=== PATIENT | female | born 1960 | race Caucasian/White ===

== ENCOUNTER → 2017-09-15 | Outpatient (CLI) | payer BC ==
[~2017-09-15] MED LIST: AC325T PO; LIDOCAINE 1% INJ 20 ML (XYLOCAINE) VIAL INJ ONE; LVT.1T PO
[2017-09-15 10:15] VITALS: BP 130/78
[2017-09-15 11:35] VITALS: BP 121/76
--- NOTE | 2017-09-15 14:42 | Diagnostic Imaging Report ---
EXAMINATION: Vacuum-assisted ultrasound-guided biopsy of breast mass right. A metallic clip placed to tony biopsy site. INDICATION: Right breast mass. CONSENT: Informed consent was obtained from the patient. The risks, benefits, potential complications and alternatives were reviewed and all questions answered to the patient's satisfaction. FINDINGS: Ultrasound images demonstrate 10:00 right breast mass. PROCEDURE: After sterile preparation and draping, 1% lidocaine was utilized for local anesthesia. A vacuum-assisted biopsy device with 14-gauge needle was introduced under live ultrasound guidance into the lesion. Good needle position was documented with ultrasound images. A metallic clip was placed to tony the site of the biopsy. A subsequent mammogram is performed and confirms the proper positioning of the clip. Multiple samples were obtained and sent to pathology. The patient tolerated the procedure well with no immediate complications. IMPRESSION: Successful ultrasound-guided biopsy of 10:00 right breast mass. A metallic clip placed to tony biopsy site. Dictated by: Dictated on workstation # [id number]
--- NOTE | 2017-09-15 14:44 | Diagnostic Imaging Report ---
EXAMINATION: Right breast ultrasound. INDICATION: Mass seen in the upper outer quadrant based on outside reports. Outside images are requested but are not available at this point. FINDINGS: There is an irregular hypoechoic mass measuring 1.1 x 0.6 x 0.6 CM at 10:00 zone 4 cm from the nipple. There is no internal vascularity demonstrated. The four-quadrant and retroareolar region of the right breast demonstrate no other lesion. IMPRESSION: Suspicious 1.1 cm hypoechoic mass at the 10:00 zone 4 cm from the nipple. Ultrasound-guided biopsy will follow. BI-RADS 4C. ACR BI-RADS Category 4C: Moderate suspicion of malignancy. Dictated by: Dictated on workstation # [id number]
--- NOTE | 2017-09-15 22:30 | Diagnostic Imaging Report ---
EXAMINATION: CC and lateral view of the right breast. INDICATION: Documentation of clip position after ultrasound-guided biopsy. FINDINGS: There is a clip in the posterior lateral upper aspect of the right breast with no definite underlying lesion seen. This could relate to the nodule postbiopsy changes after the ultrasound-guided biopsy. IMPRESSION: Satisfactory clip position after ultrasound-guided biopsy of a nodule in the upper-outer aspect of the right breast. Pathology results are pending. Dictated by: Dictated on workstation # [id number]
== END ==
LOC: RAD 09:47
PROVIDERS: ATTEND Internal Medicine Hematology & Oncology
DX: N63.10 Unspecified lump in the right breast, unspecified quadrant (principal)
CPT/HCPCS: 19083; 76641

== ENCOUNTER → 2017-09-15 | Outpatient (CLI) | payer BC ==
[~2017-09-15] MED LIST changes: -LIDOCAINE 1% INJ 20 ML (XYLOCAINE) VIAL INJ ONE
== END ==
LOC: ONC 08:53
PROVIDERS: ATTEND Internal Medicine Hematology & Oncology
DX: Z08 Encounter for follow-up examination after completed treatment for malignant neoplasm (principal); Z85.3 Personal history of malignant neoplasm of breast; N63.11 Unspecified lump in the right breast, upper outer quadrant; I89.0 Lymphedema, not elsewhere classified; D64.9 Anemia, unspecified; E03.9 Hypothyroidism, unspecified; Z90.12 Acquired absence of left breast and nipple; Z90.710 Acquired absence of both cervix and uterus; Z92.21 Personal history of antineoplastic chemotherapy
CPT/HCPCS: 99213

== ENCOUNTER → 2017-09-26 | Outpatient (CLI) | payer BC ==
[~2017-09-26] MED LIST changes: +BARIUM SUSPENSION 2.1% (VANILLA SILQ) 450 ML PO ONE; +CATHETER FLUSH 10 ML SYR IV PRN; +IOHEXOL 350 MG/ML 100 ML (OMNIPAQUE 350) VIAL IV ONE; +NS 100 ML (IVPB) BAG IV ONE
--- NOTE | 2017-09-26 15:13 | Diagnostic Imaging Report ---
Whole body bone scan. Technique: After the intravenous administration of 27 mCi of Technetium 99m MDP, whole body delayed phase bone scan images were obtained with lateral views of the head and neck and the chest regions. Indication: Breast cancer. Findings: There is mild to moderate increased uptake in the mid lumbar spine which appears to correlate with area of degenerative sclerotic changes around L3/L4 level based on CT scan of 09/26/2017. No suspicious pattern of increased radiotracer uptake lesions to suggest metastatic disease. Mild degenerative related activity is noted in joints including shoulders, the hip joints and moderate to intense somewhat symmetric increased activity in the feet are all probably degenerative. IMPRESSION: No scintigraphic evidence of osseous metastasis. Dictated by: Dictated on workstation # [id number]
--- NOTE | 2017-09-26 15:18 | Diagnostic Imaging Report ---
PROCEDURE: CT chest and abdomen with contrast. TECHNIQUE: Multiple contiguous axial images were obtained through the chest and abdomen after the administration of intravenous contrast. INDICATION: Breast cancer. 100 mL of Omnipaque 350 is administered intravenously. FINDINGS: CT chest: There is evidence of left mastectomy. The right breast demonstrates a nonspecific nodular density in the upper outer aspect which could possibly correlate with the carotid ultrasound findings. The right axilla demonstrates borderline sized lymph nodes up to 0.9 cm in short axis. There is no mediastinum, hilar or axillary lymphadenopathy seen. The thoracic aorta is normal in caliber. The heart size is normal. No pericardial or pleural effusion. The lungs demonstrate no significant consolidation, mass or suspicious nodule. CT abdomen: The liver, the spleen, the pancreas, and the adrenal glands appear unremarkable. The kidneys have symmetric enhancement and contrast excretion. There is no hydronephrosis. There are surgical clips along the gastrohepatic ligament region. There is a tiny fat-containing umbilical hernia. There are prominent sclerotic changes seen around endplates of L3/L4 level that appear to be centered around the endplate with mild disc height loss and irregularity suggestive of degenerative etiology. IMPRESSION: CT chest: Borderline-sized 0.9 cm right axillary lymph node is seen and nonspecific nodular density in the upper outer aspect of the right breast are noted. Correlate with prior dedicated breast imaging and biopsy results. No evidence of metastasis otherwise. CT abdomen: No evidence of metastasis. Dictated by: Dictated on workstation # [id number]
== END ==
LOC: CARD 10:18
PROVIDERS: ATTEND Internal Medicine Hematology & Oncology
DX: C50.911 Malignant neoplasm of unspecified site of right female breast (principal)
CPT/HCPCS: 71260; 74160; 78306

== ENCOUNTER 2017-10-05 10:19 | Outpatient (CLI) | payer BC ==
[~2017-10-05] VITALS: Ht 172.7 cm; Wt 95.3 kg
[~2017-10-05 10:19] MED LIST changes: -BARIUM SUSPENSION 2.1% (VANILLA SILQ) 450 ML PO ONE; -CATHETER FLUSH 10 ML SYR IV PRN; -IOHEXOL 350 MG/ML 100 ML (OMNIPAQUE 350) VIAL IV ONE; -NS 100 ML (IVPB) BAG IV ONE
[2017-10-05] MEDS ORDERED: LEVO100T7 PO ×2 (15:25)
[2017-10-05] MEDS ORDERED: TRIA1CAP4 PO ×2 (15:25)
[2017-10-06] MEDS ORDERED: HYDR-3816 PO ×2 (13:33)
== END 2017-10-05 15:40 ==
LOC: PREOP 10:19
PROVIDERS: ATTEND Surgery
DX: Z01.818 Encounter for other preprocedural examination (principal); C50.911 Malignant neoplasm of unspecified site of right female breast

== ENCOUNTER 2017-10-06 09:42 | Day surgery (SDC) | payer BC ==
[~2017-10-06] VITALS: Ht 172.7 cm; Wt 95.3 kg
[~2017-10-06 09:42] MED LIST changes: +LEVO100T7 PO; +TRIA1CAP4 PO
--- OUTSIDE RECORDS SUMMARY | 2017-10-06 09:47 | XMS REPORT | Continuity of Care Document ---
Author Author [facility] Organization [facility] Address Unknown Phone Unavailable Allergies Active Description Code Type Severity Reaction Onset Reported/Identified Relationship to Patient Clinical Status Yes No Known Drug Allergies [id number] Drug Allergy Unknown N/ A 08/31/2012 Yes meperidine [id number] Drug Allergy Unknown N/A 09/21/2017 Medications Problems Date Dx Coded Attending Type Code Diagnosis Diagnosed By 10/15/2014 BRIANNA HAWKINS BEARING PRESS MACHINE OPERATOR Ot 457.1 10/15/2014 BRIANNA HAWKINS BEARING PRESS MACHINE OPERATOR Ot 785.1 10/15/2014 BRIANNA HAWKINS BEARING PRESS MACHINE OPERATOR Ot V10.3 10/15/2014 BRIANNA HAWKINS BEARING PRESS MACHINE OPERATOR Ot V45.71 10/15/2014 BRIANNA HAWKINS BEARING PRESS MACHINE OPERATOR Ot V45.77 10/15/2014 BRIANNA HAWKINS BEARING PRESS MACHINE OPERATOR Ot V58.69 10/15/2014 BRIANNA HAWKISN BEARING PRESS MACHINE OPERATOR Ot V67.2 10/01/2015 FILOMENA LINDSEY Ot I89.0 10/01/2015 FILOMENA LINDSEY Ot Z08 10/01/2015 FILOMENA LINDSEY Ot Z85.3 10/01/2015 FILOMENA LINDSEY Ot Z90.12 10/01/2015 FILOMENA LINDSEY Ot Z90.710 10/01/2015 FILOMENA LINDSEY N Ot Z92.21 09/17/2016 FILOMENA LINDSEY Ot I89.0 LYMPHEDEMA, NOT ELSEWHERE CLASSIFIED 09/17/2016 FILOMENA LINDSEY Ot Z08 ENCNTR FOR FOLLOW-UP EXAM AFTER TRTMT FO 09/17/2016 FILOMENA LINDSEY Ot Z85.3 PERSONAL HISTORY OF MALIGNANT NEOPLASM O 09/17/2016 FILOMENA LINDSEY Ot Z90.12 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 09/17/2016 FILOMENA LINDSEY Ot Z90.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 BOTH CERVIX AND UTER 09/17/2016 FILOMENA LINDSEY Ot Z92.21 PERSONAL HISTORY OF ANTINEOPLASTIC CHEMO 10/27/2016 FILOMENA LINDSEY Ot I89.0 LYMPHEDEMA, NOT ELSEWHERE CLASSIFIED 10/27/2016 FILOMENA LINDSEY Ot Z08 ENCNTR FOR FOLLOW-UP EXAM AFTER TRTMT FO 10/27/2016 FILOMENA LINDSEY Ot Z85.3 PERSONAL HISTORY OF MALIGNANT NEOPLASM O 10/27/2016 FILOMENA LINDSEY Ot Z90.12 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 10/27/2016 FILOMENA LINDSEY Ot Z90.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 BOTH CERVIX AND UTER 10/27/2016 FILOMENA LINDSEY Ot Z92.21 PERSONAL HISTORY OF ANTINEOPLASTIC CHEMO 09/15/2017 Ot V04.81 ND FOR PROPHYLACTIC VACCIN AND INOCULATI 09/15/2017 Ot V10.3 HX OF BREAST MALIGNANCY 09/15/2017 Ot V45.71 ACQUIRED ABSENCE OF BREAST AND NIPPLE 09/15/2017 Ot V45.77 ACQRD ABSENCE OF GENITAL ORGANS 09/15/2017 Ot V58.69 OTH MED,LT,CURRENT USE 09/15/2017 Ot V67.2 CHEMOTHERAPY FOLLOW-UP 09/15/2017 BRIANNA HAWKINS BEARING [employer]ESS MACHINE OPERATOR Ot 457.1 OTHER LYMPHEDEMA 09/15/2017 BRIANNA HAWKINS BEARING PRESS MACHINE OPERATOR Ot 785.1 PALPITATIONS 09/15/2017 BRIANNA HAWKINS BEARING PRESS MACHINE OPERATOR Ot V10.3 HX OF BREAST MALIGNANCY 09/15/2017 BRIANNA HAWKINS BEARING PRESS MACHINE OPERATOR Ot V45.71 ACQUIRED ABSENCE OF BREAST AND NIPPLE 09/15/2017 BRIANNA HAWKINS BEARING PRESS MACHINE OPERATOR Ot V45.77 ACQRD ABSENCE OF GENITAL ORGANS 09/15/2017 BRIANNA HAWKINS BEARING PRESS MACHINE OPERATOR Ot V58.69 OTH MED,LT,CURRENT USE 09/15/2017 BRIANNA HAWKINS BEARING PRESS MACHINE OPERATOR Ot V67.2 CHEMOTHERAPY FOLLOW-UP 09/15/2017 FILOMENA LINDSEY Ot I89.0 LYMPHEDEMA, NOT ELSEWHERE CLASSIFIED 09/15/2017 FILOMENA LINDSEY Ot Z08 ENCNTR FOR FOLLOW-UP EXAM AFTER TRTMT FO 09/15/2017 FILOMENA LINDSEY Ot Z85.3 PERSONAL HISTORY OF MALIGNANT NEOPLASM O 09/15/2017 FILOMENA LINDSEY Ot Z90.12 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 09/15/2017 FILOMENA LINDSEY Ot Z90.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 BOTH CERVIX AND UTER 09/15/2017 FILOMENA LINDSEY Ot Z92.21 PERSONAL HISTORY OF ANTINEOPLASTIC CHEMO 09/15/2017 FILOMENA LINDSEY Ot I89.0 LYMPHEDEMA, NOT ELSEWHERE CLASSIFIED 09/15/2017 FILOMENA LINDSEY Ot Z08 ENCNTR FOR FOLLOW-UP EXAM AFTER TRTMT FO 09/15/2017 FILOMENA LINDSEY Ot Z85.3 PERSONAL HISTORY OF MALIGNANT NEOPLASM O 09/15/2017 FILOMENA LINDSEY Ot Z90.12 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 09/15/2017 FILOMENA LINDSEY Ot Z90.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 BOTH CERVIX AND UTER 09/15/2017 FILOMENA LINDSEY Ot Z92.21 PERSONAL HISTORY OF ANTINEOPLASTIC CHEMO 09/15/2017 Ot V04.81 ND FOR PROPHYLACTIC VACCIN AND INOCULATI 09/15/2017 Ot V10.3 HX OF BREAST MALIGNANCY 09/15/2017 Ot V45.71 ACQUIRED ABSENCE OF BREAST AND NIPPLE 09/15/2017 Ot V45.77 ACQRD ABSENCE OF GENITAL ORGANS 09/15/2017 Ot V58.69 OTH MED,LT,CURRENT USE 09/15/2017 Ot V67.2 CHEMOTHERAPY FOLLOW-UP 09/15/2017 BRIANNA HAWKINS BEARING [employer]ESS MACHINE OPERATOR Ot 457.1 OTHER LYMPHEDEMA 09/15/2017 BRIANNA HAWKINS BEARING [employer]ESS MACHINE OPERATOR Ot 785.1 PALPITATIONS 09/15/2017 BRIANNA HAWKINS BEARING [employer]ESS MACHINE OPERATOR Ot V10.3 HX OF BREAST MALIGNANCY 09/15/2017 BRIANNA HAWKINS BEARING PRESS MACHINE OPERATOR Ot V45.71 ACQUIRED ABSENCE OF BREAST AND NIPPLE 09/15/2017 BRIANNA HAWKINS BEARING PRESS MACHINE OPERATOR Ot V45.77 ACQRD ABSENCE OF GENITAL ORGANS 09/15/2017 BRIANNA HAWKINS BEARING [employer]ESS MACHINE OPERATOR Ot V58.69 OTH MED,LT,CURRENT USE 09/15/2017 BRIANNA HAWKINS BEARING PRESS MACHINE OPERATOR Ot V67.2 CHEMOTHERAPY FOLLOW-UP 09/15/2017 FILOMENA LINDSEY Ot I89.0 LYMPHEDEMA, NOT ELSEWHERE CLASSIFIED 09/15/2017 FILOMENA LINDSEY Ot Z08 ENCNTR FOR FOLLOW-UP EXAM AFTER TRTMT FO 09/15/2017 FILOMENA LINDSEY Jeffery Ot Z85.3 PERSONAL HISTORY OF MALIGNANT NEOPLASM O 09/15/2017 FILOMENA LINDSEY Jeffery Ot Z90.12 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 09/15/2017 FILOMENA LINDSEY Jeffery Ot Z90.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 BOTH CERVIX AND UTER 09/15/2017 FILOMENA LINDSEY Jeffery Ot Z92.21 PERSONAL HISTORY OF ANTINEOPLASTIC CHEMO 09/15/2017 FILOMENA LINDSEY Jeffery Ot I89.0 LYMPHEDEMA, NOT ELSEWHERE CLASSIFIED 09/15/2017 FILOMENA LINDSEY Jeffery Ot Z08 ENCNTR FOR FOLLOW-UP EXAM AFTER TRTMT FO 09/15/2017 FILOMENA LINDSEY Jeffery Ot Z85.3 PERSONAL HISTORY OF MALIGNANT NEOPLASM O 09/15/2017 FILOMENA LINDSEY Jeffery Ot Z90.12 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 09/15/2017 FILOMENA LINDSEY Jeffery Ot Z90.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 BOTH CERVIX AND UTER 09/15/2017 FILOMENA LINDSEY Jeffery Ot Z92.21 PERSONAL HISTORY OF ANTINEOPLASTIC CHEMO 09/21/2017 Ot 174.9 MALIGN NEOPL BREAST NOS 09/21/2017 Ot 244.9 HYPOTHYROIDISM NOS 09/21/2017 Ot 427.42 VENTRICULAR FLUTTER 09/21/2017 Ot 626.2 EXCESSIVE MENSTRUATION 09/21/2017 Ot 785.1 PALPITATIONS 09/21/2017 Ot 786.50 CHEST PAIN NOS 09/21/2017 Ot V88.01 ACQUIRED ABSENCE OF BOTH CERVIX AND UTER 09/21/2017 FILOMENA LINDSEY Jeffery Ot D64.9 ANEMIA, UNSPECIFIED 09/21/2017 FILOMENA LINDSEY Jeffery Ot E03.9 HYPOTHYROIDISM, UNSPECIFIED 09/21/2017 FILOMENA LINDSEY Jeffery Ot I89.0 LYMPHEDEMA, NOT ELSEWHERE CLASSIFIED 09/21/2017 FILOMENA LINDSEY Jeffery Ot N63.11 UNSPECIFIED LUMP IN THE RIGHT BREAST, UP 09/21/2017 CÉSAR LINNEACHI Jeffery Ot Z08 ENCNTR FOR FOLLOW-UP EXAM AFTER TRTMT FO 09/21/2017 FILOMENA LINDSEY Jeffery Ot Z85.3 PERSONAL HISTORY OF MALIGNANT NEOPLASM O 09/21/2017 CÉSAR, LINNEACHI Jeffery Ot Z90.12 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 09/21/2017 FILOMENA LINDSEY Ot Z90.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 BOTH CERVIX AND UTER 09/21/2017 FILOMENA LINDSEY Ot Z92.21 PERSONAL HISTORY OF ANTINEOPLASTIC CHEMO 09/29/2017 FILOMENA LINDSEY Ot D64.9 ANEMIA, UNSPECIFIED 09/29/2017 FILOMENA LINDSEY Ot E03.9 HYPOTHYROIDISM, UNSPECIFIED 09/29/2017 FILOMENA LINDSEY Ot I89.0 LYMPHEDEMA, NOT ELSEWHERE CLASSIFIED 09/29/2017 FILOMENA LINDSEY Ot N63.11 UNSPECIFIED LUMP IN THE RIGHT BREAST, UP 09/29/2017 FILOMENA LINDSEY Ot Z08 ENCNTR FOR FOLLOW-UP EXAM AFTER TRTMT FO 09/29/2017 FILOMENA LINDSEY Ot Z85.3 PERSONAL HISTORY OF MALIGNANT NEOPLASM O 09/29/2017 FILOMENA LINDSEY Ot Z90.12 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 09/29/2017 FILOMENA LINDSEY Ot Z90.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 BOTH CERVIX AND UTER 09/29/2017 FILOMENA LINDSEY Ot Z92.21 PERSONAL HISTORY OF ANTINEOPLASTIC CHEMO 09/29/2017 FILOMENA LINDSEY Ot N63.10 UNSPECIFIED LUMP IN THE RIGHT BREAST, UN Procedures Results Encounters ACCT No. Visit Date/Time Discharge Status Pt. Type Provider Facility Loc./Unit Complaint [id number] 09/27/2017 08:50:00 2016 23:59:59 CLS Outpatient FILOMENA LINDSEY N [facility] ONC [id number] 09/26/2017 10:18:00 2016 23:59:59 CLS Outpatient FILOMENA LINDSEY N [facility] CARD BREAST CA,RT [id number] 09/15/2017 09:47:00 2016 23:59:59 CLS Outpatient FILOMENA LINDSEY N [facility] RAD [id number] 09/15/2017 08:53:00 2016 23:59:59 CLS Outpatient FILOMENA LINDSEY N [facility] ONC [id number] 09/16/2016 08:47:00 2015 23:59:59 CLS Outpatient FILOMENA LINDSEY N [facility] ONC [id number] 09/11/2015 09:44:00 2014 23:59:59 CLS Outpatient FILOMENA LINDSEY Jeffery [facility] ONC [id number] 09/24/2014 14:55:00 2013 23:59:59 CLS Outpatient BRIANNA HAWKINS [facility] ONC [id number] 03/05/2014 08:51:00 2013 23:59:59 CLS Outpatient [id number] 09/10/2013 08:20:00 2013 00:01:00 DIS Outpatient [id number] 09/12/2013 11:50:00 2012 23:59:59 CLS Outpatient [id number] 08/30/2013 12:34:00 2012 23:59:59 CLS Outpatient [id number] 09/15/2017 09:34:00 Document Registration [id number] 12/10/2013 08:00:00 Document Registration [id number] 08/31/2012 14:52:00 Document Registration
[2017-10-06] MEDS ORDERED: CATHETER FLUSH 10 ML SYR IV PRN (10:00)
[2017-10-06] MEDS ORDERED: ceFAZolin 1 GM/NS 50 ML IVPB IV ONE ×2 (10:00)
[2017-10-06 10:08] VITALS: BP 118/77
[2017-10-06] MEDS ORDERED: LACTATED RINGERS 1,000 ML IV PRN (10:28)
[2017-10-06] MEDS ORDERED: RT-ALBUTEROL SULF 2.5 MG/3 ML PRE-MIX VIAL INH ONE (10:30)
--- NOTE | 2017-10-06 10:36 | Progress Note-Pre Operative ---
Pre-Operative Progress Note H&P Reviewed The H&P was reviewed, patient examined and no changes noted. Date Seen by Provider: Oct 06, 2017 Time Seen by Provider: 10:30 Date H&P Reviewed: Oct 06, 2017 Time H&P Reviewed: 10:30 Pre-Operative Diagnosis: right breast cancer MISTI JAY MD Oct 06, 2017 10:36
[2017-10-06] MEDS ORDERED: morphine INJ 10 MG/ML 1ML (SYR OR VIAL) IVP PRN ×2 (10:45→14:00)
[2017-10-06] MEDS ORDERED: HYDROcodone/APAP 5 MG/325 MG (LORTAB) TAB PO ONE (10:45)
[2017-10-06] MEDS ORDERED: ACETAMINOPHEN 325 MG TABLET/CAPLET (TYLENOL) PO PRN (10:45)
[2017-10-06] MEDS ORDERED: ONDANSETRON 4 MG/2 ML (SDV) Z0FRAN IVP PRN ×2 (10:45→14:00)
[2017-10-06] MEDS ORDERED: MIDAZOLAM 2 MG/2 ML (VERSED) VIAL ONE ×2 (11:37→11:55)
[2017-10-06] MEDS ORDERED: MIDAZOLAM 2 MG/2 ML (VERSED) VIAL IV ONE (11:45)
[2017-10-06] MEDS ORDERED: MIDAZOLAM 2 MG/2 ML (VERSED) VIAL IVP ONE (11:45)
[2017-10-06] MEDS ORDERED: ceFAZolin INJECTION 1,000 MG in NS (IVPB) 50 ML IV ONE (11:45)
[2017-10-06] MEDS ORDERED: PROPOFOL INJECTION 50 ML IV ONE (11:54)
[2017-10-06] MEDS ORDERED: LIDOCAINE/EPI 1%-1:200,000 (XYLOCAINE) 10 ML VIAL ONE (12:02)
[2017-10-06] MEDS ORDERED: 0.9% SODIUM CHLORIDE PF INJ 20 ML VIAL ONE (12:02)
[2017-10-06] MEDS ORDERED: HEParin (CENTRAL IV FLUSH) 500 UNIT/5 ML SYR ONE ×2 (12:02→13:21)
[2017-10-06] MEDS ORDERED: fentaNYL INJECTION 100 MCG/2 ML AMP ONE ×2 (12:22→13:45)
--- NOTE | 2017-10-06 13:32 | Progress Note-Post Operative ---
Post-Operative Progess Note Surgeon (s)/Foam Rubber Mixer (s) Surgeon MISTI JAY MD Foam Rubber Mixer: hetal crisostomo DOOR OPERATOR Pre-Operative Diagnosis right breast cancer Post-Operative Diagnosis same Procedure & Operative Findings Date of Procedure 10/06/17 Procedure Performed/Findings right subclavian groshong implantable catheter placement under flouroscopy. Anesthesia Type MAC with local Estimated Blood Loss Estimated blood loss (mL): minimal Specimens/Packing Specimens Removed none MISTI JAY MD Oct 06, 2017 1:32 pm
[2017-10-06] MEDS ORDERED: HYDR-3816 PO ×2 (13:33)
--- NOTE | 2017-10-06 13:34 | Discharge Inst-Surgical ---
D/C Lap Instructions-PIERRE New, Converted, or Re-Newed RX: RX on Chart Follow Up Appt in 2 weeks Activity as tolerated Regular Diet Symptoms to Report: Fever over 101 degree F, Nausea/Vomiting Infection Signs and Symptoms to report: Increased redness, Foul odor of wound, Increased drainage Bathing instructions: May shower Operative Area Clean/Dry; Keep incision clean/dry If any problems/questions: Contact your physician or go to Emergency Room MISTI JAY MD Oct 06, 2017 1:34 pm
[2017-10-06] MEDS ORDERED: proPOfol 200 MG/20 ML (DIPRIVAN) VIAL IV ONE (13:41)
[2017-10-06] MEDS ORDERED: 0.9% SODIUM CHLORIDE PF INJ 10 ML VIAL IV ONE (13:45)
[2017-10-06] MEDS ORDERED: LIDOCAINE/EPI 1%-1:200,000 (XYLOCAINE) 10 ML VIAL INJ ONE (13:45)
[2017-10-06] MEDS ORDERED: HEParin (CENTRAL IV FLUSH) 500 UNIT/5 ML SYR IV ONE (13:45)
[2017-10-06] MEDS ORDERED: fentaNYL INJECTION 100 MCG/2 ML AMP IVP PRN (14:00)
--- NOTE | 2017-10-06 14:04 | Diagnostic Imaging Report ---
Portable upright radiograph of the chest. INDICATION: Post port placement. FINDINGS: There is a right subclavian port with the tip projecting at the upper SVC level. The lungs demonstrate no focal infiltrate. The heart size is borderline enlarged with minimal vascular congestion. No effusion or pneumothorax. The mediastinum and little appear unremarkable. IMPRESSION: Borderline cardiac size with minimal vascular congestion. Right subclavian port is placed with the tip at the upper SVC level. Dictated by: Dictated on workstation # [id number]
[2017-10-06 14:40] VITALS: BP 170/94
[2017-10-06] MEDS ORDERED: HYDROcodone/APAP 5 MG/325 MG (LORTAB) TAB ONE (14:46)
[2017-10-06 15:10] VITALS: BP 145/86
--- NOTE | 2017-10-06 18:26 | OPERATIVE REPORT ---
DATE OF SERVICE: 10/06/2017 ATTENDING PRIMARY CARE PHYSICIAN: Dr. Dakotah Nash. PREOPERATIVE DIAGNOSIS: Right breast infiltrating breast cancer. POSTOPERATIVE DIAGNOSIS: Right breast infiltrating breast cancer. PROCEDURE: Right subclavian Groshong catheter placement under fluoroscopy. SURGEON: Dr. Jay. ANESTHESIA: Monitored anesthesia care with local. ESTIMATED BLOOD LOSS: Minimal. FINDINGS: Groshong tip at superior vena cava - right atrial junction. DISPOSITION: The patient tolerated the procedure well. INDICATIONS: The patient is a 57-year-old female with right breast biopsy proven breast cancer. She has a history of right-sided breast cancer diagnosed in 1998, status post modified radical mastectomy and chemotherapy at age 39. She does have a very strong family history of cancer including a sister diagnosed with breast cancer at age 23 and another sister having colon cancer as well as father having what she believes to be as lung cancer; however, multiple aunts and uncles on her father's side with cancers as well. 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 A PET scan was performed, which did not show any metastasis. Recent CT scan was also performed, which did show one solitary enlarged axillary lymph node. She reports that she has experiencing fatigue over the past few months. She does not report any abnormal nipple discharge or any blood. She began menstrual cycles at around age 13 and surgical menopause with a total hysterectomy in 2002. She has never taken any oral contraceptive pills. She has had two pregnancies followed by two live births and did not breastfeed either child. DESCRIPTION OF PROCEDURE: The patient was brought to the operating room, laid supine on the table. After adequate IV pain and sedative medications and monitored anesthesia care, the neck and chest were prepped and draped in standard surgical fashion. 0.5% Marcaine with epinephrine was then used to anesthetize the overlying skin in the right subclavian region and the subclavian vein was cannulated with drawing of the venous blood. The guidewire was then inserted under fluoroscopy. The cannulating needle removed and skin incision made using an 15 blade. The dilator and sheath were then introduced over the guidewire. The dilator and guidewire were then removed and the Groshong implantable catheter was placed until the tip of the catheter was at the superior vena cava - right atrial junction. The inner wire within the catheter was then removed and the catheter cut down to size and the port placed onto the catheter. The subcutaneous reservoir was then created. A plane was created between the subcutaneous fat and the anterior pectoralis fascia using blunt dissection as well as electrocautery. The port was then placed into the anterior chest reservoir and sutured to the anterior pectoralis fascia using 3-0 Vicryl interrupted sutures. Skin was then reapproximated using 3-0 Vicryl interrupted sutures. Skin was closed using 4-0 Monocryl running subcuticular suture. Wound was then cleaned and covered with Dermabond. The port was accessed and venous blood drawn out and heparinized saline pushed in without any resistance. The patient tolerated the procedure well. We will get a postprocedure x-ray and once placement was confirmed, the port may be accessed and used at any time. Job ID: [id number] DocumentID: [id number] Dictated Date: 10/06/2017 13:48:35 Nanoelectronics Engineer Date: 10/06/2017 18:25:46 Dictated By: MISTI JAY MD MTDD
--- NOTE | 2017-10-06 18:57 | Diagnostic Imaging Report ---
EXAMINATION: Intraoperative view of the chest. INDICATION: Post placement. FINDINGS: Fluoroscopic time provided to the OR is 185 seconds. IMPRESSION: Right subclavian port is seen in place with the tip at the upper SVC level. Dictated by: Dictated on workstation # [id number]
== END 2017-10-06 15:50 | disposition home or self-care (01) ==
LOC: SDC 09:42
PROVIDERS: ATTEND Surgery
DX: C50.911 Malignant neoplasm of unspecified site of right female breast (principal); R59.0 Localized enlarged lymph nodes; I10 Essential (primary) hypertension; E03.9 Hypothyroidism, unspecified; J45.909 Unspecified asthma, uncomplicated; Z90.12 Acquired absence of left breast and nipple; Z92.21 Personal history of antineoplastic chemotherapy; Z80.0 Family history of malignant neoplasm of digestive organs; Z80.1 Family history of malignant neoplasm of trachea, bronchus and lung; Z80.3 Family history of malignant neoplasm of breast; Z17.0 Estrogen receptor positive status [ER+]; Z79.899 Other long term (current) drug therapy; Z90.710 Acquired absence of both cervix and uterus
CPT/HCPCS: 71010; 87081; 94640

== ENCOUNTER 2017-12-13 08:40 | Outpatient (RCR) | payer BC ==
[2017-09-27 09:50] LABS: BASOPHILS % (AUTO) 0 % (0-10); EOSINOPHILS % (AUTO) 0 % (0-10); HEMATOCRIT 43 % (35-52); HEMOGLOBIN 14.6 G/DL (11.5-16.0); LYMPHOCYTES # (AUTO) 0.7 X 10^3 (1.0-4.0); LYMPHOCYTES % (AUTO) 6 % (12-44); MEAN CORPUSCULAR HEMOGLOBIN 30 PG (25-34); MEAN CORPUSCULAR HGB CONC 34 G/DL (32-36); MEAN CORPUSCULAR VOLUME 88 FL (80-99); MEAN PLATELET VOLUME 10.3 FL (7.4-10.4); MONOCYTES # (AUTO) 0.2 X 10^3 (0.0-1.0); MONOCYTES % (AUTO) 2 % (0-12); NEUTROPHILS # (AUTO) 9.3 X 10^3 (1.8-7.8); NEUTROPHILS % (AUTO) 92 % (42-75); PLATELET COUNT 272 10^3/uL (130-400); RED BLOOD COUNT 4.88 10^6/uL (4.35-5.85); RED CELL DISTRIBUTION WIDTH 12.4 % (10.0-14.5); WHITE BLOOD COUNT 10.1 10^3/uL (4.3-11.0)
[2017-09-27 10:08] LABS: ALANINE AMINOTRANSFERASE 24 U/L (0-55); ALBUMIN 4.5 GM/DL (3.2-4.5); ALKALINE PHOSPHATASE 91 U/L (40-136); BILIRUBIN,TOTAL 0.4 MG/DL (0.1-1.0); BUN/CREATININE RATIO 21; CALCIUM 9.8 MG/DL (8.5-10.1); CARBON DIOXIDE 28 MMOL/L (21-32); CHLORIDE 102 MMOL/L (98-107); CREATININE SERUM 0.81 MG/DL (0.60-1.30); GFR ESTIMATED > 60; GLUCOSE 124 MG/DL (70-105); POTASSIUM 3.8 MMOL/L (3.6-5.0); SODIUM 140 MMOL/L (135-145); TOTAL PROTEIN 8.2 GM/DL (6.4-8.2)
[2017-10-04 13:14] LABS: BASOPHILS # (AUTO) 0.1 10^3/uL (0.0-0.1); BASOPHILS % (AUTO) 1 % (0-10); EOSINOPHILS % (AUTO) 1 % (0-10); HEMATOCRIT 39 % (35-52); HEMOGLOBIN 13.3 G/DL (11.5-16.0); LYMPHOCYTES # (AUTO) 0.6 X 10^3 (1.0-4.0); LYMPHOCYTES % (AUTO) 9 % (12-44); MEAN CORPUSCULAR HEMOGLOBIN 30 PG (25-34); MEAN CORPUSCULAR HGB CONC 34 G/DL (32-36); MEAN CORPUSCULAR VOLUME 89 FL (80-99); MEAN PLATELET VOLUME 10.3 FL (7.4-10.4); MONOCYTES # (AUTO) 0.2 X 10^3 (0.0-1.0); MONOCYTES % (AUTO) 3 % (0-12); NEUTROPHILS # (AUTO) 5.4 X 10^3 (1.8-7.8); NEUTROPHILS % (AUTO) 86 % (42-75); PLATELET COUNT 295 10^3/uL (130-400); RED BLOOD COUNT 4.41 10^6/uL (4.35-5.85); RED CELL DISTRIBUTION WIDTH 12.3 % (10.0-14.5); WHITE BLOOD COUNT 6.3 10^3/uL (4.3-11.0)
[2017-10-04 13:30] LABS: BUN/CREATININE RATIO 19; CALCIUM 9.6 MG/DL (8.5-10.1); CARBON DIOXIDE 26 MMOL/L (21-32); CHLORIDE 102 MMOL/L (98-107); CREATININE SERUM 0.89 MG/DL (0.60-1.30); GFR ESTIMATED > 60; GLUCOSE 119 MG/DL (70-105); POTASSIUM 3.7 MMOL/L (3.6-5.0); SODIUM 138 MMOL/L (135-145)
[2017-10-11 09:13] LABS: BASOPHILS % (AUTO) 0 % (0-10); EOSINOPHILS % (AUTO) 0 % (0-10); HEMATOCRIT 41 % (35-52); HEMOGLOBIN 13.8 G/DL (11.5-16.0); LYMPHOCYTES # (AUTO) 0.5 X 10^3 (1.0-4.0); LYMPHOCYTES % (AUTO) 9 % (12-44); MEAN CORPUSCULAR HEMOGLOBIN 30 PG (25-34); MEAN CORPUSCULAR HGB CONC 34 G/DL (32-36); MEAN CORPUSCULAR VOLUME 89 FL (80-99); MEAN PLATELET VOLUME 9.9 FL (7.4-10.4); MONOCYTES # (AUTO) 0.1 X 10^3 (0.0-1.0); MONOCYTES % (AUTO) 1 % (0-12); NEUTROPHILS # (AUTO) 5.5 X 10^3 (1.8-7.8); NEUTROPHILS % (AUTO) 90 % (42-75); PLATELET COUNT 393 10^3/uL (130-400); RED BLOOD COUNT 4.63 10^6/uL (4.35-5.85); RED CELL DISTRIBUTION WIDTH 12.5 % (10.0-14.5); WHITE BLOOD COUNT 6.1 10^3/uL (4.3-11.0)
[2017-10-11 09:31] LABS: BUN/CREATININE RATIO 18; CALCIUM 10.1 MG/DL (8.5-10.1); CARBON DIOXIDE 25 MMOL/L (21-32); CHLORIDE 100 MMOL/L (98-107); CREATININE SERUM 0.83 MG/DL (0.60-1.30); GFR ESTIMATED > 60; GLUCOSE 151 MG/DL (70-105); SODIUM 138 MMOL/L (135-145)
[2017-10-18 08:55] LABS: BASOPHILS % (AUTO) 0 % (0-10); EOSINOPHILS % (AUTO) 0 % (0-10); HEMATOCRIT 40 % (35-52); HEMOGLOBIN 13.6 G/DL (11.5-16.0); LYMPHOCYTES # (AUTO) 0.4 X 10^3 (1.0-4.0); LYMPHOCYTES % (AUTO) 10 % (12-44); MEAN CORPUSCULAR HEMOGLOBIN 30 PG (25-34); MEAN CORPUSCULAR HGB CONC 34 G/DL (32-36); MEAN CORPUSCULAR VOLUME 89 FL (80-99); MEAN PLATELET VOLUME 10.2 FL (7.4-10.4); MONOCYTES % (AUTO) 1 % (0-12); NEUTROPHILS % (AUTO) 90 % (42-75); PLATELET COUNT 401 10^3/uL (130-400); RED BLOOD COUNT 4.55 10^6/uL (4.35-5.85); RED CELL DISTRIBUTION WIDTH 12.6 % (10.0-14.5); WHITE BLOOD COUNT 4.5 10^3/uL (4.3-11.0)
[2017-10-18 09:12] LABS: ALBUMIN 4.2 GM/DL (3.2-4.5); BILIRUBIN,TOTAL 0.4 MG/DL (0.1-1.0); CALCIUM 9.8 MG/DL (8.5-10.1); CREATININE SERUM 0.98 MG/DL (0.60-1.30); POTASSIUM 3.5 MMOL/L (3.6-5.0); TOTAL PROTEIN 7.3 GM/DL (6.4-8.2)
[2017-10-26 10:24] LABS: BASOPHILS # (AUTO) 0.1 10^3/uL (0.0-0.1); BASOPHILS % (AUTO) 3 % (0-10); EOSINOPHILS # (AUTO) 0.1 10^3/uL (0.0-0.3); EOSINOPHILS % (AUTO) 2 % (0-10); HEMATOCRIT 39 % (35-52); HEMOGLOBIN 13.4 G/DL (11.5-16.0); LYMPHOCYTES # (AUTO) 1.7 X 10^3 (1.0-4.0); LYMPHOCYTES % (AUTO) 41 % (12-44); MEAN CORPUSCULAR HEMOGLOBIN 31 PG (25-34); MEAN CORPUSCULAR HGB CONC 34 G/DL (32-36); MEAN CORPUSCULAR VOLUME 89 FL (80-99); MEAN PLATELET VOLUME 9.9 FL (7.4-10.4); MONOCYTES # (AUTO) 0.5 X 10^3 (0.0-1.0); MONOCYTES % (AUTO) 13 % (0-12); NEUTROPHILS # (AUTO) 1.7 X 10^3 (1.8-7.8); NEUTROPHILS % (AUTO) 41 % (42-75); PLATELET COUNT 298 10^3/uL (130-400); RED CELL DISTRIBUTION WIDTH 13.3 % (10.0-14.5); WHITE BLOOD COUNT 4.1 10^3/uL (4.3-11.0)
[2017-10-26 10:41] LABS: BUN/CREATININE RATIO 23; CALCIUM 10.3 MG/DL (8.5-10.1); CARBON DIOXIDE 28 MMOL/L (21-32); CHLORIDE 103 MMOL/L (98-107); CREATININE SERUM 0.83 MG/DL (0.60-1.30); GFR ESTIMATED > 60; GLUCOSE 97 MG/DL (70-105); POTASSIUM 3.3 MMOL/L (3.6-5.0); SODIUM 141 MMOL/L (135-145)
[2017-11-01 09:11] LABS: BASOPHILS # (AUTO) 0.2 10^3/uL (0.0-0.1); BASOPHILS % (AUTO) 4 % (0-10); EOSINOPHILS # (AUTO) 0.1 10^3/uL (0.0-0.3); EOSINOPHILS % (AUTO) 3 % (0-10); HEMATOCRIT 38 % (35-52); HEMOGLOBIN 12.9 G/DL (11.5-16.0); LYMPHOCYTES # (AUTO) 1.6 X 10^3 (1.0-4.0); LYMPHOCYTES % (AUTO) 42 % (12-44); MEAN CORPUSCULAR HEMOGLOBIN 31 PG (25-34); MEAN CORPUSCULAR HGB CONC 34 G/DL (32-36); MEAN CORPUSCULAR VOLUME 90 FL (80-99); MEAN PLATELET VOLUME 10.2 FL (7.4-10.4); MONOCYTES # (AUTO) 0.4 X 10^3 (0.0-1.0); MONOCYTES % (AUTO) 9 % (0-12); NEUTROPHILS # (AUTO) 1.7 X 10^3 (1.8-7.8); NEUTROPHILS % (AUTO) 43 % (42-75); PLATELET COUNT 291 10^3/uL (130-400); RED BLOOD COUNT 4.23 10^6/uL (4.35-5.85); RED CELL DISTRIBUTION WIDTH 13.4 % (10.0-14.5); WHITE BLOOD COUNT 3.9 10^3/uL (4.3-11.0)
[2017-11-01 09:37] LABS: BUN/CREATININE RATIO 18; CALCIUM 9.5 MG/DL (8.5-10.1); CARBON DIOXIDE 28 MMOL/L (21-32); CHLORIDE 104 MMOL/L (98-107); CREATININE SERUM 0.76 MG/DL (0.60-1.30); GFR ESTIMATED > 60; GLUCOSE 95 MG/DL (70-105); POTASSIUM 3.8 MMOL/L (3.6-5.0); SODIUM 141 MMOL/L (135-145)
[2017-11-08 09:34] LABS: BASOPHILS # (AUTO) 0.1 10^3/uL (0.0-0.1); BASOPHILS % (AUTO) 1 % (0-10); EOSINOPHILS # (AUTO) 0.2 10^3/uL (0.0-0.3); EOSINOPHILS % (AUTO) 4 % (0-10); HEMATOCRIT 37 % (35-52); HEMOGLOBIN 12.9 G/DL (11.5-16.0); LYMPHOCYTES # (AUTO) 1.5 X 10^3 (1.0-4.0); LYMPHOCYTES % (AUTO) 26 % (12-44); MEAN CORPUSCULAR HEMOGLOBIN 31 PG (25-34); MEAN CORPUSCULAR HGB CONC 35 G/DL (32-36); MEAN CORPUSCULAR VOLUME 89 FL (80-99); MONOCYTES # (AUTO) 0.4 X 10^3 (0.0-1.0); MONOCYTES % (AUTO) 8 % (0-12); NEUTROPHILS # (AUTO) 3.4 X 10^3 (1.8-7.8); NEUTROPHILS % (AUTO) 61 % (42-75); PLATELET COUNT 314 10^3/uL (130-400); WHITE BLOOD COUNT 5.5 10^3/uL (4.3-11.0)
[2017-11-08 09:59] LABS: ALANINE AMINOTRANSFERASE 25 U/L (0-55); ALBUMIN 4.2 GM/DL (3.2-4.5); ALKALINE PHOSPHATASE 66 U/L (40-136); BILIRUBIN,TOTAL 0.4 MG/DL (0.1-1.0); BUN/CREATININE RATIO 18; CALCIUM 10.1 MG/DL (8.5-10.1); CARBON DIOXIDE 28 MMOL/L (21-32); CHLORIDE 100 MMOL/L (98-107); GFR ESTIMATED > 60; GLUCOSE 105 MG/DL (70-105); POTASSIUM 3.7 MMOL/L (3.6-5.0); SODIUM 139 MMOL/L (135-145); TOTAL PROTEIN 6.9 GM/DL (6.4-8.2)
[2017-11-15 09:07] LABS: BASOPHILS # (AUTO) 0.1 10^3/uL (0.0-0.1); BASOPHILS % (AUTO) 2 % (0-10); EOSINOPHILS # (AUTO) 0.1 10^3/uL (0.0-0.3); EOSINOPHILS % (AUTO) 2 % (0-10); HEMATOCRIT 40 % (35-52); HEMOGLOBIN 13.9 G/DL (11.5-16.0); LYMPHOCYTES # (AUTO) 1.6 X 10^3 (1.0-4.0); LYMPHOCYTES % (AUTO) 29 % (12-44); MEAN CORPUSCULAR HEMOGLOBIN 31 PG (25-34); MEAN CORPUSCULAR HGB CONC 35 G/DL (32-36); MEAN CORPUSCULAR VOLUME 89 FL (80-99); MEAN PLATELET VOLUME 9.8 FL (7.4-10.4); MONOCYTES # (AUTO) 0.5 X 10^3 (0.0-1.0); MONOCYTES % (AUTO) 8 % (0-12); NEUTROPHILS # (AUTO) 3.4 X 10^3 (1.8-7.8); NEUTROPHILS % (AUTO) 59 % (42-75); PLATELET COUNT 330 10^3/uL (130-400); RED CELL DISTRIBUTION WIDTH 14.1 % (10.0-14.5); WHITE BLOOD COUNT 5.7 10^3/uL (4.3-11.0)
[2017-11-15 09:24] LABS: BUN/CREATININE RATIO 23; CARBON DIOXIDE 26 MMOL/L (21-32); CHLORIDE 101 MMOL/L (98-107); GFR ESTIMATED > 60; GLUCOSE 98 MG/DL (70-105); POTASSIUM 3.4 MMOL/L (3.6-5.0); SODIUM 138 MMOL/L (135-145)
[2017-11-22 09:31] LABS: BASOPHILS # (AUTO) 0.1 10^3/uL (0.0-0.1); BASOPHILS % (AUTO) 2 % (0-10); EOSINOPHILS # (AUTO) 0.1 10^3/uL (0.0-0.3); EOSINOPHILS % (AUTO) 2 % (0-10); HEMATOCRIT 37 % (35-52); HEMOGLOBIN 12.4 G/DL (11.5-16.0); LYMPHOCYTES # (AUTO) 1.8 X 10^3 (1.0-4.0); LYMPHOCYTES % (AUTO) 33 % (12-44); MEAN CORPUSCULAR HEMOGLOBIN 31 PG (25-34); MEAN CORPUSCULAR HGB CONC 34 G/DL (32-36); MEAN CORPUSCULAR VOLUME 91 FL (80-99); MEAN PLATELET VOLUME 10.1 FL (7.4-10.4); MONOCYTES # (AUTO) 0.4 X 10^3 (0.0-1.0); MONOCYTES % (AUTO) 7 % (0-12); NEUTROPHILS # (AUTO) 3.1 X 10^3 (1.8-7.8); NEUTROPHILS % (AUTO) 56 % (42-75); PLATELET COUNT 296 10^3/uL (130-400); RED BLOOD COUNT 4.05 10^6/uL (4.35-5.85); RED CELL DISTRIBUTION WIDTH 14.7 % (10.0-14.5); WHITE BLOOD COUNT 5.5 10^3/uL (4.3-11.0)
[2017-11-22 09:47] LABS: BUN/CREATININE RATIO 17; CALCIUM 9.3 MG/DL (8.5-10.1); CARBON DIOXIDE 28 MMOL/L (21-32); CHLORIDE 103 MMOL/L (98-107); CREATININE SERUM 0.78 MG/DL (0.60-1.30); GFR ESTIMATED > 60; GLUCOSE 92 MG/DL (70-105); POTASSIUM 3.5 MMOL/L (3.6-5.0); SODIUM 142 MMOL/L (135-145)
[2017-11-29 09:23] LABS: BASOPHILS # (AUTO) 0.1 10^3/uL (0.0-0.1); BASOPHILS % (AUTO) 2 % (0-10); EOSINOPHILS # (AUTO) 0.2 10^3/uL (0.0-0.3); EOSINOPHILS % (AUTO) 3 % (0-10); HEMATOCRIT 36 % (35-52); HEMOGLOBIN 12.4 G/DL (11.5-16.0); LYMPHOCYTES # (AUTO) 1.8 X 10^3 (1.0-4.0); LYMPHOCYTES % (AUTO) 33 % (12-44); MEAN CORPUSCULAR HEMOGLOBIN 32 PG (25-34); MEAN CORPUSCULAR HGB CONC 34 G/DL (32-36); MEAN CORPUSCULAR VOLUME 92 FL (80-99); MONOCYTES # (AUTO) 0.5 X 10^3 (0.0-1.0); MONOCYTES % (AUTO) 9 % (0-12); NEUTROPHILS # (AUTO) 2.9 X 10^3 (1.8-7.8); NEUTROPHILS % (AUTO) 53 % (42-75); PLATELET COUNT 287 10^3/uL (130-400); RED BLOOD COUNT 3.93 10^6/uL (4.35-5.85); RED CELL DISTRIBUTION WIDTH 14.9 % (10.0-14.5); WHITE BLOOD COUNT 5.3 10^3/uL (4.3-11.0)
[2017-11-29 09:53] LABS: ALANINE AMINOTRANSFERASE 25 U/L (0-55); ALKALINE PHOSPHATASE 58 U/L (40-136); BILIRUBIN,TOTAL 0.4 MG/DL (0.1-1.0); BUN/CREATININE RATIO 22; CALCIUM 9.5 MG/DL (8.5-10.1); CARBON DIOXIDE 27 MMOL/L (21-32); CHLORIDE 104 MMOL/L (98-107); CREATININE SERUM 0.76 MG/DL (0.60-1.30); GFR ESTIMATED > 60; GLUCOSE 74 MG/DL (70-105); POTASSIUM 3.7 MMOL/L (3.6-5.0); SODIUM 140 MMOL/L (135-145); TOTAL PROTEIN 6.6 GM/DL (6.4-8.2)
[2017-12-06 09:06] LABS: BASOPHILS # (AUTO) 0.1 10^3/uL (0.0-0.1); BASOPHILS % (AUTO) 3 % (0-10); EOSINOPHILS # (AUTO) 0.1 10^3/uL (0.0-0.3); EOSINOPHILS % (AUTO) 3 % (0-10); HEMATOCRIT 37 % (35-52); HEMOGLOBIN 12.5 G/DL (11.5-16.0); LYMPHOCYTES # (AUTO) 1.6 X 10^3 (1.0-4.0); LYMPHOCYTES % (AUTO) 32 % (12-44); MEAN CORPUSCULAR HEMOGLOBIN 32 PG (25-34); MEAN CORPUSCULAR HGB CONC 34 G/DL (32-36); MEAN CORPUSCULAR VOLUME 93 FL (80-99); MEAN PLATELET VOLUME 10.2 FL (7.4-10.4); MONOCYTES # (AUTO) 0.4 X 10^3 (0.0-1.0); MONOCYTES % (AUTO) 8 % (0-12); NEUTROPHILS # (AUTO) 2.8 X 10^3 (1.8-7.8); NEUTROPHILS % (AUTO) 54 % (42-75); PLATELET COUNT 308 10^3/uL (130-400); RED BLOOD COUNT 3.92 10^6/uL (4.35-5.85); RED CELL DISTRIBUTION WIDTH 15.5 % (10.0-14.5); WHITE BLOOD COUNT 5.1 10^3/uL (4.3-11.0)
[2017-12-06 09:24] LABS: BUN/CREATININE RATIO 19; CALCIUM 9.4 MG/DL (8.5-10.1); CARBON DIOXIDE 25 MMOL/L (21-32); CHLORIDE 102 MMOL/L (98-107); CREATININE SERUM 0.78 MG/DL (0.60-1.30); GFR ESTIMATED > 60; GLUCOSE 115 MG/DL (70-105); POTASSIUM 3.5 MMOL/L (3.6-5.0); SODIUM 138 MMOL/L (135-145)
[~2017-12-13] VITALS: Ht 172.7 cm; Wt 100.2 kg
[~2017-12-13 08:40] MED LIST changes: +FAMOTIDINE 20MG/2ML IV (CANCER CTR) IV SCH; +HYDR-34 PO; +NORMAL SALINE IV SCH; +NS IV 500 ML (CANCER CENTER) IV SCH; +NS IV SCH; +ONDANSETRON 16 MG, DEXAMETHASONE 10 MG/NS 50 ML IVPB IV SCH; +ONDANSETRON MDV (CANCER CENTER 16 MG, DEXAMETHASONE PF INJ (CANCER C 10 MG in D5W 50 ML... IV SCH; +PACLITAXEL IV SCH; +diphenhydrAMINE 25 MG TAB (BENADRYL) CANCER CENTER PO SCH; +diphenhydrAMINE 50 MG/ML INJ (CANCER CENTER) ONE
[2017-12-13 09:26] LABS: BASOPHILS # (AUTO) 0.1 10^3/uL (0.0-0.1); BASOPHILS % (AUTO) 3 % (0-10); EOSINOPHILS # (AUTO) 0.1 10^3/uL (0.0-0.3); EOSINOPHILS % (AUTO) 2 % (0-10); HEMATOCRIT 37 % (35-52); HEMOGLOBIN 12.4 G/DL (11.5-16.0); LYMPHOCYTES # (AUTO) 1.6 X 10^3 (1.0-4.0); LYMPHOCYTES % (AUTO) 30 % (12-44); MEAN CORPUSCULAR HEMOGLOBIN 31 PG (25-34); MEAN CORPUSCULAR HGB CONC 34 G/DL (32-36); MEAN CORPUSCULAR VOLUME 93 FL (80-99); MEAN PLATELET VOLUME 10.3 FL (7.4-10.4); MONOCYTES # (AUTO) 0.5 X 10^3 (0.0-1.0); MONOCYTES % (AUTO) 10 % (0-12); NEUTROPHILS # (AUTO) 2.9 X 10^3 (1.8-7.8); NEUTROPHILS % (AUTO) 56 % (42-75); PLATELET COUNT 320 10^3/uL (130-400); RED BLOOD COUNT 3.95 10^6/uL (4.35-5.85); RED CELL DISTRIBUTION WIDTH 15.8 % (10.0-14.5); WHITE BLOOD COUNT 5.2 10^3/uL (4.3-11.0)
[2017-12-13 09:43] LABS: BUN/CREATININE RATIO 19; CALCIUM 9.5 MG/DL (8.5-10.1); CARBON DIOXIDE 26 MMOL/L (21-32); CHLORIDE 102 MMOL/L (98-107); CREATININE SERUM 0.81 MG/DL (0.60-1.30); GFR ESTIMATED > 60; GLUCOSE 93 MG/DL (70-105); POTASSIUM 3.8 MMOL/L (3.6-5.0); SODIUM 140 MMOL/L (135-145)
== END 2017-12-19 | disposition home or self-care (01) ==
LOC: ONC 08:40
PROVIDERS: ATTEND Internal Medicine Hematology & Oncology
DX: Z08 Encounter for follow-up examination after completed treatment for malignant neoplasm (principal); Z85.3 Personal history of malignant neoplasm of breast; N63.11 Unspecified lump in the right breast, upper outer quadrant; I89.0 Lymphedema, not elsewhere classified; D64.9 Anemia, unspecified; E03.9 Hypothyroidism, unspecified; Z90.12 Acquired absence of left breast and nipple; Z90.710 Acquired absence of both cervix and uterus; Z92.21 Personal history of antineoplastic chemotherapy
CPT/HCPCS: 36415; 36591; 80048; 80053; 85025; 96375; 96413; 99213

== ENCOUNTER → 2017-12-16 | Outpatient (CLI) | payer BC ==
[~2017-12-16] MED LIST changes: -FAMOTIDINE 20MG/2ML IV (CANCER CTR) IV SCH; -NORMAL SALINE IV SCH; -NS IV 500 ML (CANCER CENTER) IV SCH; -NS IV SCH; -ONDANSETRON 16 MG, DEXAMETHASONE 10 MG/NS 50 ML IVPB IV SCH; -ONDANSETRON MDV (CANCER CENTER 16 MG, DEXAMETHASONE PF INJ (CANCER C 10 MG in D5W 50 ML... IV SCH; -PACLITAXEL IV SCH; -diphenhydrAMINE 25 MG TAB (BENADRYL) CANCER CENTER PO SCH; -diphenhydrAMINE 50 MG/ML INJ (CANCER CENTER) ONE
--- NOTE | 2017-12-16 18:26 | Diagnostic Imaging Report ---
INDICATION: Right breast carcinoma. Study is performed for further evaluation. Correlation is made with prior right breast ultrasound from 09/15/2017. FINDINGS: Sonographic interrogation of the right breast at the 10 o'clock location 4 cm from the nipple was performed. Previously noted hypoechoic mass at this location now measures 5 mm x 5 mm x 5 mm compared with 11 mm x 6 mm x 6 mm on prior exam. No new mass is identified. IMPRESSION: Mild decrease in size of hypoechoic solid mass of the right breast 10 o'clock location when compared with examination from 09/15/2017. Dictated by: Dictated on workstation # [id number]
== END ==
LOC: RAD 08:36
PROVIDERS: ATTEND Internal Medicine Hematology & Oncology
DX: C50.411 Malignant neoplasm of upper-outer quadrant of right female breast (principal)

== ENCOUNTER 2018-01-10 14:26 | Outpatient (CLI) | payer BC ==
[~2018-01-10] VITALS: Ht 172.7 cm; Wt 100.2 kg
[2018-01-10 14:34] VITALS: BP 116/84
[2018-01-10] MEDS ORDERED: ACYC400T PO (15:22)
[2018-01-10] MEDS ORDERED: AZIT250T12 PO (15:22)
[2018-01-12] MEDS ORDERED: HYDR-34 PO (14:48)
== END 2018-01-10 14:47 | disposition home or self-care (01) ==
LOC: PREOP 14:26
PROVIDERS: ATTEND Surgery
DX: Z01.818 Encounter for other preprocedural examination (principal); Z11.2 Encounter for screening for other bacterial diseases; C50.911 Malignant neoplasm of unspecified site of right female breast
CPT/HCPCS: 87081

== ENCOUNTER 2018-01-12 06:49 | Inpatient (IN) | payer BC ==
[~2018-01-12] VITALS: Ht 172.7 cm; Wt 100.2 kg
[~2018-01-12 06:49] MED LIST changes: +ACYC400T PO; +AZIT250T12 PO
[2018-01-12 07:10] VITALS: BP 148/97
--- OUTSIDE RECORDS SUMMARY | 2018-01-12 07:18 | XMS REPORT | Continuity of Care Document ---
Author Author [facility] Organization [facility] Address Unknown Phone Unavailable Allergies Active Description Code Type Severity Reaction Onset Reported/Identified Relationship to Patient Clinical Status Yes No Known Drug Allergies [id number] Drug Allergy Unknown N/A 08/31/2012 Yes meperidine [id number] Drug Allergy Unknown N/A 09/21/2017 Yes meperidine [id number] Drug Allergy Mild RASH/ITCHING 10/05/2017 Medications There is no data. Problems Date Dx Coded Attending Type Code Diagnosis Diagnosed By 10/15/2014 BRIANNA HAWKINS GEOTECHNICAL FIELD TECHNICIAN Ot 457.1 10/15/2014 BRIANNA HAWKINS GEOTECHNICAL FIELD TECHNICIAN Ot 785.1 10/15/2014 BRIANNA HAWKINS GEOTECHNICAL FIELD TECHNICIAN Ot V10.3 10/15/2014 BRIANNA HAWKNIS GEOTECHNICAL FIELD TECHNICIAN Ot V45.71 10/15/2014 BRIANNA HAWKINS GEOTECHNICAL FIELD TECHNICIAN Ot V45.77 10/15/2014 BRIANNA HAWKINS GEOTECHNICAL FIELD TECHNICIAN Ot V58.69 10/15/2014 BRIANNA HAWKINS GEOTECHNICAL FIELD TECHNICIAN Ot V67.2 10/01/2015 FILOMENA LINDSEY Ot I89.0 10/01/2015 FILOMENA LINDSEY Ot Z08 10/01/2015 FILOMENA LINDSEY N Ot Z85.3 10/01/2015 FILOMENA LINDSEY N Ot Z90.12 10/01/2015 FILOMENA LINDSEY Ot Z90.710 [...] OF GENITAL ORGANS 09/15/2017 Ot V58.69 OTH MED,LT, CURRENT USE 09/15/2017 Ot V67.2 CHEMOTHERAPY FOLLOW-UP 09/15/2017 BRIANNA HAWKINS GEOTECHNICAL FIELD TECHNICIAN Ot 457.1 OTHER LYMPHEDEMA 09/15/2017 BRIANNA HAWKINS GEOTECHNICAL FIELD TECHNICIAN Ot 785.1 PALPITATIONS 09/15/2017 BRIANNA HAWKINS GEOTECHNICAL FIELD TECHNICIAN Ot V10.3 HX OF BREAST MALIGNANCY 09/15/2017 BRIANNA HAWKINS GEOTECHNICAL FIELD TECHNICIAN Ot V45.71 ACQUIRED ABSENCE OF BREAST AND NIPPLE 09/15/2017 BRIANNA HAWKINS GEOTECHNICAL FIELD TECHNICIAN Ot V45.77 ACQRD ABSENCE OF GENITAL ORGANS 09/15/2017 BRIANNA HAWKINS GEOTECHNICAL FIELD TECHNICIAN Ot V58.69 OTH MED,LT,CURRENT USE 09/15/2017 BRIANNA HAWKINS GEOTECHNICAL FIELD TECHNICIAN Ot V67.2 CHEMOTHERAPY FOLLOW-UP 09/15/2017 FILOMENA LINDSEY [...] OF GENITAL ORGANS 09/15/2017 Ot V58.69 OTH MED,LT, CURRENT USE 09/15/2017 Ot V67.2 CHEMOTHERAPY FOLLOW-UP 09/15/2017 BRIANNA HAWKINS GEOTECHNICAL FIELD TECHNICIAN Ot 457.1 OTHER LYMPHEDEMA 09/15/2017 BRIANNA HAWKINS GEOTECHNICAL FIELD TECHNICIAN Ot 785.1 PALPITATIONS 09/15/2017 BRIANNA HAWKINS GEOTECHNICAL FIELD TECHNICIAN Ot V10.3 HX OF BREAST MALIGNANCY 09/15/2017 BRIANNA HAWKINS GEOTECHNICAL FIELD TECHNICIAN Ot V45.71 ACQUIRED ABSENCE OF BREAST AND NIPPLE 09/15/2017 BRIANNA HAWKINS GEOTECHNICAL FIELD TECHNICIAN Ot V45.77 ACQRD ABSENCE OF GENITAL ORGANS 09/15/2017 BRIANNA HAWKINS GEOTECHNICAL FIELD TECHNICIAN Ot V58.69 OTH MED,LT,CURRENT USE 09/15/2017 BRIANNA HAWKINS GEOTECHNICAL FIELD TECHNICIAN Ot V67.2 CHEMOTHERAPY FOLLOW-UP 09/15/2017 FILOMENA LINDSEY [...] LUMP IN THE RIGHT BREAST, UP 09/21/2017 FILOMENA LINDSEY Jeffery Ot Z08 ENCNTR FOR FOLLOW-UP EXAM AFTER TRTMT FO 09/21/2017 FILOMENA LINDSEY Jeffery Ot Z85.3 PERSONAL HISTORY OF MALIGNANT NEOPLASM O 09/21/2017 FILOMENA LINDSEY Ot Z90.12 ACQUIRED ABSENCE OF [...] UNSPECIFIED LUMP IN THE RIGHT BREAST, UN 10/05/2017 FILOMENA LINDSEY Ot C50.911 MALIGNANT NEOPLASM OF UNSP SITE OF RIGHT 10/05/2017 Ot 174.9 MALIGN NEOPL BREAST NOS 10/05/2017 Ot 244.9 HYPOTHYROIDISM NOS 10/05/2017 Ot 427.42 VENTRICULAR FLUTTER 10/05/2017 Ot 626.2 EXCESSIVE MENSTRUATION 10/05/2017 Ot 785.1 PALPITATIONS 10/05/2017 Ot 786.50 CHEST PAIN NOS 10/05/2017 Ot V88.01 ACQUIRED ABSENCE OF BOTH CERVIX AND UTER 10/05/2017 FILOMENA LINDSEY Ot D64.9 ANEMIA, UNSPECIFIED 10/05/2017 FILOMENA LINDSEY Ot E03.9 HYPOTHYROIDISM, UNSPECIFIED 10/05/2017 FILOMENA LINDSEY Ot I89.0 LYMPHEDEMA, NOT ELSEWHERE CLASSIFIED 10/05/2017 FILOMENA LINDSEY Ot N63.11 UNSPECIFIED LUMP IN THE RIGHT BREAST, UP 10/05/2017 FILOMENA LINDSEY Ot Z08 ENCNTR FOR FOLLOW-UP EXAM AFTER TRTMT FO 10/05/2017 FILOMENA LINDSEY Ot Z85.3 PERSONAL HISTORY OF MALIGNANT NEOPLASM O 10/05/2017 FILOMENA LINDSEY Ot Z90.12 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 10/05/2017 FILOMENA LINDSEY Ot Z90.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 BOTH CERVIX AND UTER 10/05/2017 FILOMENA LINDSEY Ot Z92.21 PERSONAL HISTORY OF ANTINEOPLASTIC CHEMO 10/06/2017 Ot V04.81 ND FOR PROPHYLACTIC VACCIN AND INOCULATI 10/06/2017 Ot V10.3 HX OF BREAST MALIGNANCY 10/06/2017 Ot V45.71 ACQUIRED ABSENCE OF BREAST AND NIPPLE 10/06/2017 Ot V45.77 ACQRD ABSENCE OF GENITAL ORGANS 10/06/2017 Ot V58.69 OTH MED,LT, CURRENT USE 10/06/2017 Ot V67.2 CHEMOTHERAPY FOLLOW-UP 10/06/2017 BRIANNA HAWKINS GEOTECHNICAL FIELD TECHNICIAN Ot 457.1 OTHER LYMPHEDEMA 10/06/2017 BRIANNA HAWKINS GEOTECHNICAL FIELD TECHNICIAN Ot 785.1 PALPITATIONS 10/06/2017 BRIANNA HAWKINS GEOTECHNICAL FIELD TECHNICIAN Ot V10.3 HX OF BREAST MALIGNANCY 10/06/2017 BRIANNA HAWKINS GEOTECHNICAL FIELD TECHNICIAN Ot 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 ACQUIRED ABSENCE OF BREAST AND NIPPLE 10/06/2017 BRIANNA HAWKINS GEOTECHNICAL FIELD TECHNICIAN Ot V45.77 ACQRD ABSENCE OF GENITAL ORGANS 10/06/2017 BRIANNA HAWKINS GEOTECHNICAL FIELD TECHNICIAN Ot V58.69 OTH MED,LT,CURRENT USE 10/06/2017 BRIANNA HAWKINS GEOTECHNICAL FIELD TECHNICIAN Ot V67.2 CHEMOTHERAPY FOLLOW-UP 10/06/2017 FILOMENA LINDSEY Ot I89.0 LYMPHEDEMA, NOT ELSEWHERE CLASSIFIED 10/06/2017 FILOMENA LINDSEY Ot Z08 ENCNTR FOR FOLLOW-UP EXAM AFTER TRTMT FO 10/06/2017 FILOMENA LINDSEY Ot Z85.3 PERSONAL HISTORY OF MALIGNANT NEOPLASM O 10/06/2017 FILOMENA LINDSEY Ot Z90.12 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 10/06/2017 FILOMENA LINDSEY Jeffery Ot Z90.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 BOTH CERVIX AND UTER 10/06/2017 FILOMENA LINDSEY N Ot Z92.21 PERSONAL HISTORY OF ANTINEOPLASTIC CHEMO 10/06/2017 FILOMENA LINDSEY N Ot I89.0 LYMPHEDEMA, NOT ELSEWHERE CLASSIFIED 10/06/2017 FILOMENA LINDSEY N Ot Z08 ENCNTR FOR FOLLOW-UP EXAM AFTER TRTMT FO 10/06/2017 FILOMENA LINDSEY N Ot Z85.3 PERSONAL HISTORY OF MALIGNANT NEOPLASM O 10/06/2017 FILOMENA LINDSEY N Ot Z90.12 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 10/06/2017 FILOMENA LINDSEY N Ot Z90.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 BOTH CERVIX AND UTER 10/06/2017 FILOMENA LINDSEY N Ot Z92.21 PERSONAL HISTORY OF ANTINEOPLASTIC CHEMO 10/06/2017 FILOMENA LINDSEY N Ot D64.9 ANEMIA, UNSPECIFIED 10/06/2017 CÉSARFILOMENA N Ot E03.9 HYPOTHYROIDISM, UNSPECIFIED 10/06/2017 CÉSARFILOMENA LOPEZ N Ot I89.0 LYMPHEDEMA, NOT ELSEWHERE CLASSIFIED 10/06/2017 FILOMENA LINDSEY N Ot N63.11 UNSPECIFIED LUMP IN THE RIGHT BREAST, UP 10/06/2017 FILOMENA LINDSEY N Ot Z08 ENCNTR FOR FOLLOW-UP EXAM AFTER TRTMT FO 10/06/2017 FILOMENA LINDSEY N Ot Z85.3 PERSONAL HISTORY OF MALIGNANT NEOPLASM O 10/06/2017 FILOMENA LINDSEY N Ot Z90.12 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 10/06/2017 FILOMENA LINDSEY N Ot Z90.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 BOTH CERVIX AND UTER 10/06/2017 FILOMENA LINDSEY N Ot Z92.21 PERSONAL HISTORY OF ANTINEOPLASTIC CHEMO 10/06/2017 CÉSARFILOMENA N Ot N63.10 UNSPECIFIED LUMP IN THE RIGHT BREAST, UN 10/06/2017 FILOMENA LINDSEY N Ot D64.9 ANEMIA, UNSPECIFIED 10/06/2017 CÉSARFILOMENA N Ot E03.9 HYPOTHYROIDISM, UNSPECIFIED 10/06/2017 CÉSARFILOMENA N Ot I89.0 LYMPHEDEMA, NOT ELSEWHERE CLASSIFIED 10/06/2017 CÉSARFILOMENA LOPEZ N Ot N63.11 UNSPECIFIED LUMP IN THE RIGHT BREAST, UP 10/06/2017 FILOMENA LINDSEY N Ot Z08 ENCNTR FOR FOLLOW-UP EXAM AFTER TRTMT FO 10/06/2017 CÉSAR, FILOMENA Gil Ot Z85.3 PERSONAL HISTORY OF MALIGNANT NEOPLASM O 10/06/2017 CÉSAR, FILOMENA Gil Ot Z90.12 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 10/06/2017 CÉSAR, FILOMENA Gil Ot Z90.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 BOTH CERVIX AND UTER 10/06/2017 CÉSARLINNEA LOPEZCHI Gil Ot Z92.21 PERSONAL HISTORY OF ANTINEOPLASTIC CHEMO 10/06/2017 CÉSARLINNEA LOPEZCHI Gil Ot C50.911 MALIGNANT NEOPLASM OF UNSP SITE OF RIGHT 10/06/2017 MISTI JAY MD, Ot C50.911 MALIGNANT NEOPLASM OF UNSP SITE OF RIGHT 10/06/2017 MISTI JAY MD, Ot E03.9 HYPOTHYROIDISM, UNSPECIFIED 10/06/2017 MISTI JAY MD, Ot I10 ESSENTIAL (PRIMARY) HYPERTENSION 10/06/2017 MISTI JAY MD, Ot J45.909 UNSPECIFIED ASTHMA, UNCOMPLICATED 10/06/2017 MISTI JAY MD, Ot R59.0 LOCALIZED ENLARGED LYMPH NODES 10/06/2017 MISTI JAY MD, Ot Z17.0 ESTROGEN RECEPTOR POSITIVE STATUS [ER+] 10/06/2017 MISTI JAY MD, Ot Z79.899 OTHER [facility] (CURRENT) DRUG THERAPY 10/06/2017 MISTI JAY MD, Ot Z80.0 FAMILY HISTORY OF MALIGNANT NEOPLASM OF 10/06/2017 MISTI JAY MD, Ot Z80.1 FAMILY HISTORY OF MALIG NEOPLASM OF TRAC 10/06/2017 MISTI JAY MD, Ot Z80.3 FAMILY HISTORY OF MALIGNANT NEOPLASM OF 10/06/2017 MISTI JAY MD, Ot Z90.12 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 10/06/2017 MISTI JAY MD, Ot Z90.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 BOTH CERVIX AND UTER 10/06/2017 MISTI JAY MD, Ot Z92.21 PERSONAL HISTORY OF ANTINEOPLASTIC CHEMO 10/10/2017 MISTI JAY MD, Ot C50.911 MALIGNANT NEOPLASM OF UNSP SITE OF RIGHT 10/10/2017 MISTI JAY MD, Ot Z01.818 ENCOUNTER FOR OTHER PREPROCEDURAL EXAMIN 10/10/2017 MISTI JAY MD, Ot C50.911 MALIGNANT NEOPLASM OF UNSP SITE OF RIGHT 10/10/2017 MISTI JAY MD, Ot E03.9 HYPOTHYROIDISM, UNSPECIFIED 10/10/2017 MISTI JAY MD, Ot I10 ESSENTIAL (PRIMARY) HYPERTENSION 10/10/2017 MISTI JAY MD, Ot J45.909 UNSPECIFIED ASTHMA, UNCOMPLICATED 10/10/2017 MISTI JAY MD, Ot R59.0 LOCALIZED ENLARGED LYMPH NODES 10/10/2017 MISTI JAY MD, Ot Z17.0 ESTROGEN RECEPTOR POSITIVE STATUS [ER+] 10/10/2017 MISTI JAY MD, Ot Z79.899 OTHER [facility] (CURRENT) DRUG THERAPY 10/10/2017 MISTI JAY MD, Ot Z80.0 FAMILY HISTORY OF MALIGNANT NEOPLASM OF 10/10/2017 MISTI JAY MD, Ot Z80.1 FAMILY HISTORY OF MALIG NEOPLASM OF TRAC 10/10/2017 MISTI JAY MD, Ot Z80.3 FAMILY HISTORY OF MALIGNANT NEOPLASM OF 10/10/2017 MISTI JAY MD, Ot Z90.12 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 10/10/2017 MISTI JAY MD, Ot Z90.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 BOTH CERVIX AND UTER 10/10/2017 MISTI JAY MD, Ot Z92.21 PERSONAL HISTORY OF ANTINEOPLASTIC CHEMO 10/14/2017 FILOMENA LINDSEY Ot D64.9 ANEMIA, UNSPECIFIED 10/14/2017 FILOMENA LINDSEY Ot E03.9 HYPOTHYROIDISM, UNSPECIFIED 10/14/2017 FILOMENA LINDSEY Ot I89.0 LYMPHEDEMA, NOT ELSEWHERE CLASSIFIED 10/14/2017 FILOMENA LINDSEY Ot N63.11 UNSPECIFIED LUMP IN THE RIGHT BREAST, UP 10/14/2017 FILOMENA LINDSEY Ot Z08 ENCNTR FOR FOLLOW-UP EXAM AFTER TRTMT FO 10/14/2017 FILOMENA LINDSEY Ot Z85.3 PERSONAL HISTORY OF MALIGNANT NEOPLASM O 10/14/2017 FILOMENA LINDSEY Ot Z90.12 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 10/14/2017 FILOMENA LINDSEY Ot Z90.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 BOTH CERVIX AND UTER 10/14/2017 FILOMENA LINDSEY Ot Z92.21 PERSONAL HISTORY OF ANTINEOPLASTIC CHEMO 10/18/2017 FILOMENA LINDSEY Ot D64.9 ANEMIA, UNSPECIFIED 10/18/2017 FILOMENA LINDSEY Jeffery Ot E03.9 HYPOTHYROIDISM, UNSPECIFIED 10/18/2017 FILOMENA LINDSEY Jeffery Ot I89.0 LYMPHEDEMA, NOT ELSEWHERE CLASSIFIED 10/18/2017 FILOMENA LINDSEY Jfefery Ot N63.11 UNSPECIFIED LUMP IN THE RIGHT BREAST, UP 10/18/2017 FILOMENA LINDSEY Jeffery Ot Z08 ENCNTR FOR FOLLOW-UP EXAM AFTER TRTMT FO 10/18/2017 FILOMENA LINDSEY Jeffery Ot Z85.3 PERSONAL HISTORY OF MALIGNANT NEOPLASM O 10/18/2017 FILOMENA LINDSEY Jeffery Ot Z90.12 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 10/18/2017 CÉSARFILOMENA LOPEZ Jeffery Ot Z90.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 BOTH CERVIX AND UTER 10/18/2017 CÉSARFILOMENA LOPEZ Jeffery Ot Z92.21 PERSONAL HISTORY OF ANTINEOPLASTIC CHEMO 11/04/2017 MISTI JAY MD, Ot C50.911 MALIGNANT NEOPLASM OF UNSP SITE OF RIGHT 11/04/2017 MISTI JAY MD, Ot E03.9 HYPOTHYROIDISM, UNSPECIFIED 11/04/2017 MISTI JAY MD, Ot I10 ESSENTIAL (PRIMARY) HYPERTENSION 11/04/2017 MISTI JAY MD, Ot J45.909 UNSPECIFIED ASTHMA, UNCOMPLICATED 11/04/2017 MISTI JAY MD, Ot R59.0 LOCALIZED ENLARGED LYMPH NODES 11/04/2017 MISTI JAY MD, Ot Z17.0 ESTROGEN RECEPTOR POSITIVE STATUS [ER+] 11/04/2017 MISTI JAY MD, Ot Z79.899 OTHER [facility] (CURRENT) DRUG THERAPY 11/04/2017 MISTI JAY MD, Ot Z80.0 FAMILY HISTORY OF MALIGNANT NEOPLASM OF 11/04/2017 MISTI JAY MD, Ot Z80.1 FAMILY HISTORY OF MALIG NEOPLASM OF TRAC 11/04/2017 MISTI JAY MD, Ot Z80.3 FAMILY HISTORY OF MALIGNANT NEOPLASM OF 11/04/2017 MISTI JAY MD, Ot Z90.12 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 11/04/2017 MISTI JAY MD, Ot Z90.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 BOTH CERVIX AND UTER 11/04/2017 MISTI JAY MD, Ot Z92.21 PERSONAL HISTORY OF ANTINEOPLASTIC CHEMO 11/08/2017 CÉSARFILOMENA N Ot D64.9 ANEMIA, UNSPECIFIED 11/08/2017 CÉSAR LINNEACHI N Ot E03.9 HYPOTHYROIDISM, UNSPECIFIED 11/08/2017 CÉSAR, BOBAN N Ot I89.0 LYMPHEDEMA, NOT ELSEWHERE CLASSIFIED 11/08/2017 FILOMENA LINDSEY N Ot N63.11 UNSPECIFIED LUMP IN THE RIGHT BREAST, UP 11/08/2017 CÉSAR LINNEACHI N Ot Z08 ENCNTR FOR FOLLOW-UP EXAM AFTER TRTMT FO 11/08/2017 CÉSAR LINNEACHI N Ot Z85.3 PERSONAL HISTORY OF MALIGNANT NEOPLASM O 11/08/2017 CÉSAR BOBAN N Ot Z90.12 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 11/08/2017 CÉSARFILOMENA N Ot Z90.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 BOTH CERVIX AND UTER 11/08/2017 CÉSARLINNEACHI N Ot Z92.21 PERSONAL HISTORY OF ANTINEOPLASTIC CHEMO 11/29/2017 FILOMENA LINDSEY N Ot D64.9 ANEMIA, UNSPECIFIED 11/29/2017 CÉSAR LINNEACHI N Ot E03.9 HYPOTHYROIDISM, UNSPECIFIED 11/29/2017 CÉSAR, BOBCHI N Ot I89.0 LYMPHEDEMA, NOT ELSEWHERE CLASSIFIED 11/29/2017 CÉSARFILOMENA N Ot N63.11 UNSPECIFIED LUMP IN THE RIGHT BREAST, UP 11/29/2017 CÉSAR LINNEACHI N Ot Z08 ENCNTR FOR FOLLOW-UP EXAM AFTER TRTMT FO 11/29/2017 CÉSAR LINNEACHI N Ot Z85.3 PERSONAL HISTORY OF MALIGNANT NEOPLASM O 11/29/2017 CÉSAR LINNEACHI N Ot Z90.12 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 11/29/2017 CÉSARLINNEAAN N Ot Z90.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 BOTH CERVIX AND UTER 11/29/2017 CÉSAR, BOBAN N Ot Z92.21 PERSONAL HISTORY OF ANTINEOPLASTIC CHEMO 12/19/2017 CÉSAR, BOBCHI N Ot D64.9 ANEMIA, UNSPECIFIED 12/19/2017 CÉSAR, BOBAN N Ot E03.9 HYPOTHYROIDISM, UNSPECIFIED 12/19/2017 CÉSAR, BOBAN N Ot I89.0 LYMPHEDEMA, NOT ELSEWHERE CLASSIFIED 12/19/2017 CÉSAR LINNEACHI N Ot N63.11 UNSPECIFIED LUMP IN THE RIGHT BREAST, UP 12/19/2017 FILOMENA LINDSEY N Ot Z08 ENCNTR FOR FOLLOW-UP EXAM AFTER TRTMT FO 12/19/2017 CÉSAR LINNEACHI N Ot Z85.3 PERSONAL HISTORY OF MALIGNANT NEOPLASM O 12/19/2017 CÉSAR LINNEACHI N Ot Z90.12 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 12/19/2017 CÉSAR LINNEACHI N Ot Z90.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 BOTH CERVIX AND UTER 12/19/2017 CÉSAR LINNEACHI N Ot Z92.21 PERSONAL HISTORY OF ANTINEOPLASTIC CHEMO 12/19/2017 CÉSAR LINNEACHI N Ot C50.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 UPPER-OUTER QUADRANT OF 12/19/2017 CÉSAR FILOMENA N Ot C50.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 UPPER-OUTER QUADRANT OF 12/25/2017 CÉSAR FILOMENA N Ot D64.9 ANEMIA, UNSPECIFIED 12/25/2017 CÉSAR FILOMENA N Ot E03.9 HYPOTHYROIDISM, UNSPECIFIED 12/25/2017 CÉSAR FILOMENA N Ot I89.0 LYMPHEDEMA, NOT ELSEWHERE CLASSIFIED 12/25/2017 CÉSAR LINNEACHI N Ot N63.11 UNSPECIFIED LUMP IN THE RIGHT BREAST, UP 12/25/2017 CÉSAR LINNEACHI N Ot Z08 ENCNTR FOR FOLLOW-UP EXAM AFTER TRTMT FO 12/25/2017 CÉSAR, LINNEACHI Jeffery Ot Z85.3 PERSONAL HISTORY OF MALIGNANT NEOPLASM O 12/25/2017 CÉSAR LINNEACHI N Ot Z90.12 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 12/25/2017 CÉSAR LINNEACHI Jeffery Ot Z90.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 BOTH CERVIX AND UTER 12/25/2017 CÉSAR LINNEACHI N Ot Z92.21 PERSONAL HISTORY OF ANTINEOPLASTIC CHEMO 01/03/2018 CÉSAR LINNEACHI N Ot D64.9 ANEMIA, UNSPECIFIED 01/03/2018 CÉSAR FILOMENA N Ot E03.9 HYPOTHYROIDISM, UNSPECIFIED 01/03/2018 CÉSARFILOMENA N Ot I89.0 LYMPHEDEMA, NOT ELSEWHERE CLASSIFIED 01/03/2018 CÉSAR FILOMENA N Ot N63.11 UNSPECIFIED LUMP IN THE RIGHT BREAST, UP 01/03/2018 CÉSAR, FILOMENA N Ot Z08 ENCNTR FOR FOLLOW-UP EXAM AFTER TRTMT FO 01/03/2018 FILOMENA LINDSEY Ot Z85.3 PERSONAL HISTORY OF MALIGNANT NEOPLASM O 01/03/2018 FILOMENA LINDSEY Ot Z90.12 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 01/03/2018 FILOMENA LINDSEY Ot Z90.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 BOTH CERVIX AND UTER 01/03/2018 FILOMENA LINDSEY Ot Z92.21 PERSONAL HISTORY OF ANTINEOPLASTIC CHEMO 01/11/2018 MISTI JAY MD, Ot C50.911 MALIGNANT NEOPLASM OF UNSP SITE OF RIGHT 01/11/2018 MISTI JAY MD, Ot Z01.818 ENCOUNTER FOR OTHER PREPROCEDURAL EXAMIN 01/11/2018 MISTI JAY MD, Ot Z11.2 ENCOUNTER FOR SCREENING FOR OTHER BACTER Procedures There is no data. Results Test Result Range Methicillin resistant Staphylococcus aureus (MRSA) screening culture - 10:14 Methicillin resistant Staphylococcus aureus (MRSA) screening culture NEG NRG Complete blood count (CBC) with automated white blood cell (WBC) differential - 10/26/17 10:17 Blood leukocytes automated count (number/volume) 4.1 10*3/uL 4.3-11.0 Blood erythrocytes automated count (number/volume) 4.40 10*6/uL 4.35-5.85 Venous blood hemoglobin measurement (mass/volume) 13.4 g/dL 11.5-16.0 Blood hematocrit (volume fraction) 39 % 35-52 Automated erythrocyte mean corpuscular volume 89 [foz_us] 80-99 Automated erythrocyte mean corpuscular hemoglobin (mass per erythrocyte) 31 pg 25-34 Automated erythrocyte mean corpuscular hemoglobin concentration measurement ( mass/volume) 34 g/dL 32-36 Automated erythrocyte distribution width ratio 13.3 % 10.0-14.5 Automated blood platelet count (count/volume) 298 10*3/uL 130-400 Automated blood platelet mean volume measurement 9.9 [foz_us] 7.4-10.4 Automated blood neutrophils/100 leukocytes 41 % 42-75 Automated blood lymphocytes/100 leukocytes 41 % 12-44 Blood monocytes/100 leukocytes 13 % 0-12 Automated blood eosinophils/100 leukocytes 2 % 0-10 Automated blood basophils/100 leukocytes 3 % 0-10 Blood neutrophils automated count (number/volume) 1.7 10*3 1.8-7.8 Blood lymphocytes automated count (number/volume) 1.7 10*3 1.0-4.0 Blood monocytes automated count (number/volume) 0.5 10*3 0.0-1.0 Automated eosinophil count 0.1 10*3/uL 0.0-0.3 Automated blood basophil count (count/volume) 0.1 10*3/uL 0.0-0.1 Whole blood basic metabolic panel - 10/26/17 10:17 Serum or plasma sodium measurement (moles/volume) 141 mmol/L 135-145 Serum or plasma potassium measurement (moles/volume) 3.3 mmol/L 3.6-5.0 Serum or plasma chloride measurement (moles/volume) 103 mmol/L 98-107 Carbon dioxide 28 mmol/L 21-32 Serum or plasma anion gap determination (moles/volume) 10 mmol/L 5-14 Serum or plasma urea nitrogen measurement (mass/volume) 19 mg/dL 7-18 Serum or plasma creatinine measurement (mass/volume) 0.83 mg/dL 0.60-1.30 Serum or plasma urea nitrogen/creatinine mass ratio 23 NRG Serum or plasma creatinine measurement with calculation of estimated glomerular filtration rate > NRG Serum or plasma glucose measurement (mass/volume) 97 mg/dL 70-105 Serum or plasma calcium measurement (mass/volume) 10.3 mg/dL 8.5-10.1 Methicillin resistant Staphylococcus aureus (MRSA) screening culture - 14:44 Methicillin resistant Staphylococcus aureus (MRSA) screening culture NEG NRG Encounters ACCT No. Visit Date/Time Discharge Status Pt. Type Provider Facility Loc./Unit Complaint [id number] 01/10/2018 14:26:00 01/10/2018 14:47:00 DIS Outpatient MISTI JAY MD [facility] PREOP RIGHT BREAST CANCER [id number] 01/04/2018 08:44:00 01/04/2018 23:59:59 CLS [facility]readmit [facility] [id number] 12/20/2017 08:50:00 12/20/2017 23:59:59 CLS Outpatient FILOMENA LINDSEY [facility] ONC [id number] 12/13/2017 08:40:00 12/19/2017 00:01:00 DIS Outpatient FILOMENA LINDSEY Jeffery [facility] ONC [id number] 12/16/2017 08:36:00 12/16/2017 23:59:59 CLS Outpatient FILOMENA LINDSEY Jeffery [facility] RAD C50.411 BREAST CANCER [id number] 10/06/2017 09:42:00 10/06/2017 15:50:00 DIS Outpatient MISTI JAY MD [facility] SDC RIGHT BREAST CANCER [id number] 10/05/2017 10:19:00 10/05/2017 15:40:00 DIS Outpatient MISTI JAY MD [facility] PREOP RIGHT BREAST CANCER [id number] 09/26/2017 10:18:00 09/26/2017 23:59:59 CLS Outpatient FILOMENA LINDSEY Jeffery [facility] CARD BREAST CA,RT [id number] 09/15/2017 09:47:00 09/15/2017 23:59:59 CLS Outpatient FILOMENA LINDSEY [facility] RAD [id number] 09/15/2017 08:53:00 09/15/2017 23:59:59 CLS Outpatient FILOMENA LINDSEY N [facility] ONC [id number] 09/16/2016 08:47:00 09/16/2016 23:59:59 CLS Outpatient FILOMENA LINDSEY Jeffery [facility] ONC [id number] 09/11/2015 09:44:00 09/11/2015 23:59:59 CLS Outpatient FILOMENA LINDSEY N [facility] ONC [id number] 09/24/2014 14:55:00 09/24/2014 23:59:59 CLS Outpatient BRIANNA HAWKINS [facility] ONC [id number] 03/05/2014 08:51:00 03/05/2014 23:59:59 CLS Outpatient [id number] 09/10/2013 08:20:00 12/09/2013 00:01:00 DIS Outpatient [id number] 09/12/2013 11:50:00 09/12/2013 23:59:59 CLS Outpatient [id number] 08/30/2013 12:34:00 08/30/2013 23:59:59 CLS Outpatient [id number] 01/12/2018 08:00:00 PEN Preadmit MISTI JAY MD RIGHT BREAST CANCER [id number] 01/12/2018 06:49:00 ACT Inpatient MISTI JAY MD [facility] SURG RT BREAST CA [id number] 09/15/2017 09:34:00 Document Registration [id number] 12/10/2013 08:00:00 Document Registration [id number] 08/31/2012 14:52:00 Document Registration
[2018-01-12] MEDS ORDERED: CATHETER FLUSH 10 ML SYR IV PRN (07:30)
[2018-01-12] MEDS ORDERED: ceFAZolin INJECTION 1,000 MG in NS (IVPB) 100 ML IV ONE (07:30)
[2018-01-12] MEDS ORDERED: ceFAZolin 1 GM/NS 100 ML IVPB IV ONE ×2 (07:30)
--- NOTE | 2018-01-12 08:53 | Progress Note-Pre Operative ---
Pre-Operative Progress Note H&P Reviewed The H&P was reviewed, patient examined and no changes noted. Date Seen by Provider: Jan 12, 2018 Time Seen by Provider: 08:45 Date H&P Reviewed: Jan 12, 2018 Time H&P Reviewed: 08:45 Pre-Operative Diagnosis: right breast cancer MISTI JAY MD Jan 12, 2018 8:53 am
[2018-01-12] MEDS: LACTATED RINGERS 1,000 ML IV PRN ×2 (10:38→13:17)
--- NOTE | 2018-01-12 10:45 | Diagnostic Imaging Report ---
Procedure: Lymphoscintigraphy. Indication: Right breast cancer. Findings: Following aseptic preparation of the skin, 1.0 mCi of 99 technetium sulfur colloid was injected in 4 divided doses in the periareolar region subcutaneously. There was uptake of the radiotracer by a node. The skin over the node was marked Impression: There has been a successful lymphoscintigraphy procedure. Dictated by: Dictated on workstation # [id number]
[2018-01-12] MEDS ORDERED: ceFAZolin 1,000 MG (ANCEF) VIAL ONE (11:02)
[2018-01-12] MEDS ORDERED: NS (IVPB) 100 ML ONE (11:02)
[2018-01-12] MEDS ORDERED: LACTATED RINGERS 1,000 ML IV PRN (11:03)
[2018-01-12] MEDS ORDERED: MIDAZOLAM 2 MG/2 ML (VERSED) VIAL IV ONE (11:15)
[2018-01-12] MEDS ORDERED: proPOfol 200 MG/20 ML (DIPRIVAN) VIAL IV ONE (11:25)
[2018-01-12] MEDS ORDERED: ONDANSETRON 4 MG/2 ML (SDV) Z0FRAN ONE (11:25)
[2018-01-12] MEDS ORDERED: DEXAMETHASONE 10 MG/ML (DECADRON) 1 ML VIAL ONE ×2 (11:25→12:32)
[2018-01-12] MEDS ORDERED: fentaNYL INJECTION 100 MCG/2 ML AMP ONE ×3 (11:25→13:45)
[2018-01-12] MEDS ORDERED: LIDOCAINE PF 2% 5 ML (XYLOCAINE) VIAL ONE (11:25)
[2018-01-12] MEDS ORDERED: SEVOFLURANE (ULTANE) 15 ML INHAL SOLN ONE ×12 (12:31→14:54)
[2018-01-12] MEDS ORDERED: BUP/EPI 0.5% 1:200,000 (SENSORCAINE) 30 ML VIAL ONE (12:38)
--- NOTE | 2018-01-12 14:08 | Anesthesia-General Post-Op ---
General Patient Condition Mental Status/LOC: Same as Preop Cardiovascular: Satisfactory Nausea/Vomiting: Absent Respiratory: Satisfactory Pain: Controlled Complications: Absent Post Op Complications Complications None Follow Up Care/Instructions Patient Instructions None needed. Anesthesia/Patient Condition Patient Condition Patient is doing well, no complaints, stable vital signs, no apparent adverse anesthesia problems. No complications reported per nursing. D/C home per [facility] Criteria: Yes YUE MONTERO CRNA Jan 12, 2018 14:08
--- NOTE | 2018-01-12 14:34 | Progress Note-Post Operative ---
Post-Operative Progess Note Surgeon (s)/Relief Operator (s) Surgeon MISTI JAY MD Relief Operator: hetal crisostomo [employer] Pre-Operative Diagnosis right breast cancer Post-Operative Diagnosis same Procedure & Operative Findings Date of Procedure 01/12/18 Procedure Performed/Findings Right deep axillary sentinel node biopsy and simple mastectomy. Anesthesia Type general LMA Estimated Blood Loss Estimated blood loss (mL): 100ml Specimens/Packing Specimens Removed right axillary sentinel node. right simple mastectomy. MISTI JAY MD Jan 12, 2018 2:34 pm
[2018-01-12] MEDS ORDERED: fentaNYL INJECTION 5,000 MCG in EMPTY IV BAG (PVC) 1 EA IV SCH (14:45)
[2018-01-12] MEDS ORDERED: ACETAMINOPHEN 325 MG TABLET/CAPLET (TYLENOL) PO PRN (14:45)
[2018-01-12] MEDS ORDERED: oxyCODONE/APAP 5/325MG (PERCOCET 5) TABLET PO PRN (14:45)
[2018-01-12] MEDS ORDERED: morphine INJ 10 MG/ML 1ML (SYR OR VIAL) IVP PRN (14:45)
[2018-01-12] MEDS ORDERED: HYDR-34 PO (14:48)
--- NOTE | 2018-01-12 14:49 | Discharge Inst-Surgical ---
D/C Lap Instructions-PIERRE New, Converted, or Re-Newed RX: RX on Chart Follow Up Appt in 1 week Activity as tolerated No driving for 24 hours No driving while on pain medications Incentive Spirometry use every 2 hours while awake Regular Diet Symptoms to Report: Fever over 101 degree F, Nausea/Vomiting Infection Signs and Symptoms to report: Increased redness, Foul odor of wound, Increased drainage Bathing instructions: May shower Operative Area Clean/Dry; Keep incision clean/dry If any problems/questions: Contact your physician or go to Emergency Room MISTI JAY MD Jan 12, 2018 2:49 pm
[2018-01-12] MEDS ORDERED: ONDANSETRON 4 MG/2 ML (SDV) Z0FRAN IVP PRN (15:15)
[2018-01-12] MEDS ORDERED: fentaNYL INJECTION 100 MCG/2 ML AMP IVP PRN (15:15)
[2018-01-12] MEDS: morphine INJ 10 MG/ML 1ML (SYR OR VIAL) IVP PRN ×2 (15:30→15:35)
[2018-01-12 16:10] VITALS: BP 164/80
[2018-01-12] MEDS ORDERED: fentaNYL INJECTION 1,000 MCG in NS (IVPB) 80 ML INJ SCH ×2 (17:15→18:15)
[2018-01-12] MEDS: ONDANSETRON 4 MG/2 ML (SDV) Z0FRAN IVP PRN ×2 (18:00→21:34)
[2018-01-12] MEDS ORDERED: PATIENT MAY USE OWN MEDS, ALL MC SCH ×2 (18:30)
[2018-01-12 19:15] VITALS: BP 115/58
--- NOTE | 2018-01-12 20:03 | OPERATIVE REPORT ---
DATE OF SERVICE: 01/12/2018 ATTENDING PRIMARY CARE PHYSICIAN: Dakotah Nash DO. 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 PROCEDURE performed: Right deep axillary sentinel node biopsy and right simple mastectomy. SURGEON: Jacqueline Aviles MD. HOME CONNECT LPN: Zion Romo APRN. ANESTHESIA: General laryngeal mask airway. ESTIMATED BLOOD LOSS: 300 mL. FINDINGS: One sentinel lymph node identified with a count of 313 and background of 30 consistent with less than 10% background. There were no masses or lymphadenopathy. DISPOSITION: The patient tolerated the procedure well. INDICATIONS: The patient is a 57-year-old female with a right breast biopsy-proven invasive ductal cancer. She has a history of left-sided breast cancer in 1998, status post modified radical mastectomy and chemotherapy at age 39. She has a very strong family history of cancers including her sister being diagnosed with breast cancer at age 23 and another sister having colon cancer as well as her father having what she believes to be lung cancer and multiple aunts and uncles on her father's side with family history of cancers as well. She also reports a brother having some form of skin cancer requiring a wide excision of the lower extremity. The biopsy was a triple negative ER/WA and HER/archie negative and poorly differentiated. A PET scan was performed which did not show any metastasis. A CT scan which showed one solitary enlarged axillary lymph node. Her only symptom was fatigue over the past several months. She does not report any palpable masses as well as no skin dimpling or changes in structure of her breasts. She does not report any abnormal nipple discharge or any blood. She reports beginning menstrual cycles at around age 13 and surgical menopause with a total hysterectomy 2002. She has never taken any oral contraceptive pills. She has had 2 pregnancies followed by 2 live births and did not breastfeed either child. She was seen back in the office and undergone 12 rounds of neoadjuvant chemotherapy, which she completed on 12/13/2017. She did undergo genetic testing mostly positive for BRCA1. She tolerated chemotherapy well except for some mild peripheral neuropathy. She did have a followup ultrasound of the right breast, which showed a mild decrease in the size of the mass at approximately the 10 o'clock position. DESCRIPTION OF PROCEDURE: The patient was brought to the operating room and supine on the table. After adequate IV pain and sedating medications and general laryngeal mask airway intubation, we first proceeded with subdermal nipple areolar injection using indigo carmine. This was massaged into the lymphatics for approximately 15 minutes. The upper extremity, axilla and chest and neck were then prepped and draped in standard surgical fashion. Using the [place] counter, we then proceeded with identification of the sentinel lymph node which was also marked preoperatively with lymphoscintigraphy. The skin in the axillary region was anesthetized using 0.5% Marcaine with epinephrine and a transverse skin incision made using 15 blade. The subcutaneous tissue was opened using electrocautery as was the clavipectoral fascia. With meticulous dissection, we then identified the lymphatic channels as well as the sentinel lymph node which was dyed blue. This was excised. The count on the sentinel lymph node was 313 with a background of 30, which represented a less than 10% background which is consistent with a sentinel node. This was sent to pathology for frozen section, which was preliminarily negative. We then proceeded with the simple mastectomy. An area encompassing the entire nipple areolar complex was marked off in an elliptical shape. Skin incision was made using a 10 blade. Subcutaneous tissue was then dissected down using electrocautery. We then proceeded with creation of a superior flap encompassing all of the breast tissue and allowing for a small layer of subcutaneous fat for adequate blood perfusion to the skin. We did this using the plasma blade electrocautery until our medial border was the sternum and the superior border was the clavicle. We then proceeded with inferior flap construction. In a similar manner until the rectus abdominis muscles was I was identified. We then proceeded with a medial to lateral dissection off of the pectoralis fascia using electrocautery. We proceeded just inferior to the pectoralis minor muscle. We proceed to lateral until we reached the latissimus dorsi. The wound was then copiously irrigated with sterile water with visualization of good hemostasis. Two 15-gauge Jose-Valles drains were placed, one superiorly and one inferiorly. The drains were then sutured to the skin using 3-0 silk sutures. The subcutaneous tissue of the large breast incision was then reapproximated using 3-0 Vicryl interrupted sutures. The incision to the sentinel node biopsy was also approximated. The skin incisions were then closed using 4-0 Monocryl running subcuticular sutures. Wounds were then cleaned and covered with Dermabond followed by sterile gauze followed by 6 inch around the circumference of the chest wall. The patient tolerated the procedure well. We will admit her for 23-hour observation and proceed with DVT prophylaxis with calf SCDs, early ambulation. We will also proceed with adequate pain control with fentanyl ANALYTICAL LEAD. When she is tolerating fluids, has good pain control with oral pain medications, ambulating well, we will discharge her home. We will have follow up in approximately 1 week and remove drains as adequate. Job ID: [id number] DocumentID: [id number] Dictated Date: 01/12/2018 15:03:58 Biomedical Engineering Internship Date: 01/12/2018 20:02:39 Dictated By: JACQUELINE AVILES MD MTDD
[2018-01-13 00:01] VITALS: BP 113/56
[2018-01-13 04:37] VITALS: BP 117/56
[2018-01-13 08:00] VITALS: BP 112/55
[2018-01-13] MEDS ORDERED: OMEP20CA12 PO (08:23)
[2018-01-13] MEDS ORDERED: HYDROCHLOROTHIAZID PO SCH (09:00)
[2018-01-13] MEDS ORDERED: LEVOTHYROXINE 100 MCG (LEVOTHROID) TAB PO SCH (09:00)
[2018-01-13] MEDS ORDERED: TRIAMTERENE PO SCH (09:00)
[2018-01-13] MEDS ORDERED: PATIENT MAY USE OWN MEDS, ALL MC SCH (09:45)
[2018-01-13] MEDS: ONDANSETRON 4 MG/2 ML (SDV) Z0FRAN IVP PRN (09:47)
--- NOTE | 2018-01-13 12:19 | Progress Note (SOAP) ---
Subjective Date Seen by Provider: Jan 13, 2018 Time Seen by Provider: 11:00 Subjective/Events-last exam doing well. tolerating diet. pain controlled. ambulating well. full function right arm. Objective Exam Vital Signs Date Time Temp Pulse Resp B/P (MAP) Pulse Ox O2 Delivery O2 Flow Rate FiO2 01/13/18 11:07 94 Nasal Cannula 2.00 01/13/18 08:00 99.2 103 25 112/55 (74) 94 Nasal Cannula 2.00 01/13/18 08:00 Nasal Cannula 2.00 01/13/18 07:25 93 Nasal Cannula 2.00 01/13/18 04:37 97.9 90 17 117/56 (76) 97 Nasal Cannula 2.00 01/13/18 02:10 98 Nasal Cannula 2.00 01/13/18 00:01 97.8 92 17 113/56 (75) 97 Nasal Cannula 2.00 01/12/18 22:15 97 Nasal Cannula 3.00 01/12/18 20:25 Nasal Cannula 2.00 01/12/18 19:15 97.9 87 15 115/58 (77) 97 Nasal Cannula 2.00 01/12/18 18:50 92 Nasal Cannula 3.00 01/12/18 16:57 97.7 01/12/18 16:10 98.0 89 16 164/80 (108) 95 Room Air I & O 01/13/18 07:00 Intake Total 1950 ml Output Total 1540 ml Balance 410 ml Capillary Refill : General Appearance: No Apparent Distress HEENT: PERRL/EOMI Neck: Full Range of Motion Respiratory: Chest Non Tender, Lungs Clear, Normal Breath Sounds Cardiovascular: Regular Rate, Rhythm Gastrointestinal: normal bowel sounds, non tender, soft Extremity: Normal Capillary Refill Neurologic/Psychiatric: Alert, Oriented x3 Skin: Normal Color, Other (wounds clean/dry, no erythema or seroma) Lymphatic: No Adenopathy Assessment/Plan Assessment/Plan Assess & Plan/Chief Complaint s/p right sentinel node biopsy and simple mastectomy. increase ambulation. record drain output. home soon and f/u 1 week. Clinical Quality Measures DVT/VTE Risk/Contraindication: Risk Factor Score Per Nursin RFS Level Per Nursing on Admit: 3=High MISTI JAY MD Jan 13, 2018 12:19 pm
[2018-01-13 14:20] VITALS: BP 112/55
[2018-01-13] MEDS ORDERED: ACYCLOVIR 400 MG TABLET (ZOVIRAX) PO SCH (21:00)
[2018-01-14] MEDS ORDERED: PANTOPRAZOLE 20 MG TABLET (PROTONIX) PO PRN (07:00)
== END 2018-01-13 14:20 | disposition home or self-care (01) | DRG 581 ==
LOC: 4TH 06:49 → SURG 06:50 → EDSTATUS 07:30 → 4TH 16:10
PROVIDERS: ADMIT Surgery; ATTEND Surgery
PROC: 07B50ZX Excision of Right Axillary Lymphatic, Open Approach, Diagnostic (ICD-10-PCS; 2018-01-12)
PROC: 0HTT0ZZ Resection of Right Breast, Open Approach (ICD-10-PCS; principal; 2018-01-12 11:55)
DX: C50.411 Malignant neoplasm of upper-outer quadrant of right female breast (principal); Z15.01 Genetic susceptibility to malignant neoplasm of breast; I10 Essential (primary) hypertension; E03.9 Hypothyroidism, unspecified; Z80.3 Family history of malignant neoplasm of breast; Z90.12 Acquired absence of left breast and nipple; Z17.1 Estrogen receptor negative status [ER-]; Z90.710 Acquired absence of both cervix and uterus
CPT/HCPCS: 78195; 94664; 94760

== ENCOUNTER 2018-02-27 08:50 | Outpatient (RCR) | payer BC ==
[2017-12-20 09:20] LABS: BASOPHILS # (AUTO) 0.1 10^3/uL (0.0-0.1); BASOPHILS % (AUTO) 2 % (0-10); EOSINOPHILS # (AUTO) 0.1 10^3/uL (0.0-0.3); EOSINOPHILS % (AUTO) 2 % (0-10); HEMATOCRIT 39 % (35-52); HEMOGLOBIN 13.5 G/DL (11.5-16.0); LYMPHOCYTES # (AUTO) 1.7 X 10^3 (1.0-4.0); LYMPHOCYTES % (AUTO) 33 % (12-44); MEAN CORPUSCULAR HEMOGLOBIN 32 PG (25-34); MEAN CORPUSCULAR HGB CONC 34 G/DL (32-36); MEAN CORPUSCULAR VOLUME 94 FL (80-99); MEAN PLATELET VOLUME 10.3 FL (7.4-10.4); MONOCYTES # (AUTO) 0.3 X 10^3 (0.0-1.0); MONOCYTES % (AUTO) 7 % (0-12); NEUTROPHILS # (AUTO) 2.9 X 10^3 (1.8-7.8); NEUTROPHILS % (AUTO) 57 % (42-75); PLATELET COUNT 299 10^3/uL (130-400); RED CELL DISTRIBUTION WIDTH 15.6 % (10.0-14.5)
[2017-12-20 09:39] LABS: ALANINE AMINOTRANSFERASE 29 U/L (0-55); ALBUMIN 4.3 GM/DL (3.2-4.5); ALKALINE PHOSPHATASE 63 U/L (40-136); BILIRUBIN,TOTAL 0.5 MG/DL (0.1-1.0); BUN/CREATININE RATIO 14; CALCIUM 9.3 MG/DL (8.5-10.1); CARBON DIOXIDE 24 MMOL/L (21-32); CHLORIDE 103 MMOL/L (98-107); CREATININE SERUM 0.81 MG/DL (0.60-1.30); GFR ESTIMATED > 60; GLUCOSE 116 MG/DL (70-105); POTASSIUM 3.4 MMOL/L (3.6-5.0); SODIUM 138 MMOL/L (135-145)
[~2018-02-27 08:50] MED LIST changes: +OMEP20CA12 PO
[2018-02-27 09:17] LABS: BASOPHILS # (AUTO) 0.1 10^3/uL (0.0-0.1); BASOPHILS % (AUTO) 1 % (0-10); EOSINOPHILS # (AUTO) 0.1 10^3/uL (0.0-0.3); EOSINOPHILS % (AUTO) 2 % (0-10); HEMATOCRIT 40 % (35-52); HEMOGLOBIN 13.3 G/DL (11.5-16.0); LYMPHOCYTES # (AUTO) 1.8 X 10^3 (1.0-4.0); LYMPHOCYTES % (AUTO) 36 % (12-44); MEAN CORPUSCULAR HEMOGLOBIN 30 PG (25-34); MEAN CORPUSCULAR HGB CONC 33 G/DL (32-36); MEAN CORPUSCULAR VOLUME 91 FL (80-99); MEAN PLATELET VOLUME 10.3 FL (7.4-10.4); MONOCYTES # (AUTO) 0.5 X 10^3 (0.0-1.0); MONOCYTES % (AUTO) 9 % (0-12); NEUTROPHILS # (AUTO) 2.6 X 10^3 (1.8-7.8); NEUTROPHILS % (AUTO) 52 % (42-75); PLATELET COUNT 251 10^3/uL (130-400); RED BLOOD COUNT 4.42 10^6/uL (4.35-5.85); RED CELL DISTRIBUTION WIDTH 12.4 % (10.0-14.5)
[2018-02-27 09:40] LABS: ALANINE AMINOTRANSFERASE 21 U/L (0-55); ALBUMIN 4.2 GM/DL (3.2-4.5); ALKALINE PHOSPHATASE 76 U/L (40-136); BILIRUBIN,TOTAL 0.4 MG/DL (0.1-1.0); BUN/CREATININE RATIO 19; CALCIUM 9.6 MG/DL (8.5-10.1); CARBON DIOXIDE 27 MMOL/L (21-32); CHLORIDE 105 MMOL/L (98-107); CREATININE SERUM 0.81 MG/DL (0.60-1.30); GFR ESTIMATED > 60; GLUCOSE 126 MG/DL (70-105); POTASSIUM 3.6 MMOL/L (3.6-5.0); SODIUM 141 MMOL/L (135-145); TOTAL PROTEIN 7.1 GM/DL (6.4-8.2)
== END 2018-03-20 | disposition home or self-care (01) ==
LOC: ONC 08:50
PROVIDERS: ATTEND Internal Medicine Hematology & Oncology
DX: Z08 Encounter for follow-up examination after completed treatment for malignant neoplasm (principal); Z85.3 Personal history of malignant neoplasm of breast; N63.11 Unspecified lump in the right breast, upper outer quadrant; I89.0 Lymphedema, not elsewhere classified; D64.9 Anemia, unspecified; E03.9 Hypothyroidism, unspecified; Z90.12 Acquired absence of left breast and nipple; Z90.710 Acquired absence of both cervix and uterus; Z92.21 Personal history of antineoplastic chemotherapy
CPT/HCPCS: 36591; 80053; 85025; 99213

== ENCOUNTER 2018-07-04 15:32 | Outpatient (RCR) | payer BC ==
[2018-04-10 10:40] LABS: BASOPHILS # (AUTO) 0.1 10^3/uL (0.0-0.1); BASOPHILS % (AUTO) 1 % (0-10); EOSINOPHILS # (AUTO) 0.1 10^3/uL (0.0-0.3); EOSINOPHILS % (AUTO) 2 % (0-10); HEMATOCRIT 41 % (35-52); HEMOGLOBIN 13.7 G/DL (11.5-16.0); LYMPHOCYTES # (AUTO) 1.9 X 10^3 (1.0-4.0); LYMPHOCYTES % (AUTO) 30 % (12-44); MEAN CORPUSCULAR HEMOGLOBIN 29 PG (25-34); MEAN CORPUSCULAR HGB CONC 33 G/DL (32-36); MEAN CORPUSCULAR VOLUME 88 FL (80-99); MEAN PLATELET VOLUME 10.5 FL (7.4-10.4); MONOCYTES # (AUTO) 0.5 X 10^3 (0.0-1.0); MONOCYTES % (AUTO) 8 % (0-12); NEUTROPHILS # (AUTO) 3.7 X 10^3 (1.8-7.8); NEUTROPHILS % (AUTO) 59 % (42-75); PLATELET COUNT 273 10^3/uL (130-400); RED BLOOD COUNT 4.66 10^6/uL (4.35-5.85); RED CELL DISTRIBUTION WIDTH 12.9 % (10.0-14.5); WHITE BLOOD COUNT 6.2 10^3/uL (4.3-11.0)
[2018-04-10 11:01] LABS: ALANINE AMINOTRANSFERASE 23 U/L (0-55); ALBUMIN 4.2 GM/DL (3.2-4.5); ALKALINE PHOSPHATASE 83 U/L (40-136); BILIRUBIN,TOTAL 0.4 MG/DL (0.1-1.0); BUN/CREATININE RATIO 23; CALCIUM 9.7 MG/DL (8.5-10.1); CARBON DIOXIDE 25 MMOL/L (21-32); CHLORIDE 104 MMOL/L (98-107); CREATININE SERUM 0.84 MG/DL (0.60-1.30); GFR ESTIMATED > 60; GLUCOSE 122 MG/DL (70-105); POTASSIUM 3.5 MMOL/L (3.6-5.0); SODIUM 141 MMOL/L (135-145); TOTAL PROTEIN 7.1 GM/DL (6.4-8.2)
[2018-05-23 10:19] LABS: BASOPHILS # (AUTO) 0.1 10^3/uL (0.0-0.1); BASOPHILS % (AUTO) 1 % (0-10); EOSINOPHILS # (AUTO) 0.1 10^3/uL (0.0-0.3); EOSINOPHILS % (AUTO) 2 % (0-10); HEMATOCRIT 39 % (35-52); HEMOGLOBIN 13.6 G/DL (11.5-16.0); LYMPHOCYTES # (AUTO) 1.9 X 10^3 (1.0-4.0); LYMPHOCYTES % (AUTO) 35 % (12-44); MEAN CORPUSCULAR HEMOGLOBIN 30 PG (25-34); MEAN CORPUSCULAR HGB CONC 35 G/DL (32-36); MEAN CORPUSCULAR VOLUME 87 FL (80-99); MONOCYTES # (AUTO) 0.6 X 10^3 (0.0-1.0); MONOCYTES % (AUTO) 11 % (0-12); NEUTROPHILS # (AUTO) 2.8 X 10^3 (1.8-7.8); NEUTROPHILS % (AUTO) 51 % (42-75); PLATELET COUNT 248 10^3/uL (130-400); RED BLOOD COUNT 4.51 10^6/uL (4.35-5.85); RED CELL DISTRIBUTION WIDTH 13.2 % (10.0-14.5); WHITE BLOOD COUNT 5.5 10^3/uL (4.3-11.0)
[2018-05-23 10:38] LABS: ALANINE AMINOTRANSFERASE 21 U/L (0-55); ALBUMIN 4.3 GM/DL (3.2-4.5); ALKALINE PHOSPHATASE 83 U/L (40-136); BILIRUBIN,TOTAL 0.6 MG/DL (0.1-1.0); BUN/CREATININE RATIO 18; CALCIUM 9.8 MG/DL (8.5-10.1); CARBON DIOXIDE 28 MMOL/L (21-32); CHLORIDE 104 MMOL/L (98-107); CREATININE SERUM 0.84 MG/DL (0.60-1.30); GFR ESTIMATED > 60; GLUCOSE 81 MG/DL (70-105); POTASSIUM 3.9 MMOL/L (3.6-5.0); SODIUM 140 MMOL/L (135-145); TOTAL PROTEIN 7.8 GM/DL (6.4-8.2)
== END 2018-07-09 | disposition home or self-care (01) ==
LOC: ONC 15:32
PROVIDERS: ATTEND Internal Medicine Hematology & Oncology
DX: Z08 Encounter for follow-up examination after completed treatment for malignant neoplasm (principal); Z85.3 Personal history of malignant neoplasm of breast; N63.11 Unspecified lump in the right breast, upper outer quadrant; I89.0 Lymphedema, not elsewhere classified; D64.9 Anemia, unspecified; E03.9 Hypothyroidism, unspecified; Z90.12 Acquired absence of left breast and nipple; Z90.710 Acquired absence of both cervix and uterus; Z92.21 Personal history of antineoplastic chemotherapy
CPT/HCPCS: 36591; 80053; 84443; 85025; 85652; 86038; 86039; 86141; 96523

== ENCOUNTER 2018-09-27 14:18 | Outpatient (RCR) | payer BC ==
[2018-08-14 15:10] LABS: BASOPHILS # (AUTO) 0.1 10^3/uL (0.0-0.1); BASOPHILS % (AUTO) 1 % (0-10); EOSINOPHILS # (AUTO) 0.1 10^3/uL (0.0-0.3); EOSINOPHILS % (AUTO) 2 % (0-10); HEMATOCRIT 39 % (35-52); HEMOGLOBIN 13.7 G/DL (11.5-16.0); LYMPHOCYTES # (AUTO) 2.1 X 10^3 (1.0-4.0); LYMPHOCYTES % (AUTO) 32 % (12-44); MEAN CORPUSCULAR HEMOGLOBIN 30 PG (25-34); MEAN CORPUSCULAR HGB CONC 35 G/DL (32-36); MEAN CORPUSCULAR VOLUME 86 FL (80-99); MEAN PLATELET VOLUME 10.2 FL (7.4-10.4); MONOCYTES # (AUTO) 0.6 X 10^3 (0.0-1.0); MONOCYTES % (AUTO) 9 % (0-12); NEUTROPHILS # (AUTO) 3.8 X 10^3 (1.8-7.8); NEUTROPHILS % (AUTO) 57 % (42-75); PLATELET COUNT 252 10^3/uL (130-400); RED BLOOD COUNT 4.58 10^6/uL (4.35-5.85); RED CELL DISTRIBUTION WIDTH 12.5 % (10.0-14.5); WHITE BLOOD COUNT 6.7 10^3/uL (4.3-11.0)
[2018-08-14 15:31] LABS: ALANINE AMINOTRANSFERASE 26 U/L (0-55); ALBUMIN 4.5 GM/DL (3.2-4.5); ALKALINE PHOSPHATASE 78 U/L (40-136); BILIRUBIN,TOTAL 0.4 MG/DL (0.1-1.0); BUN/CREATININE RATIO 15; CALCIUM 10.2 MG/DL (8.5-10.1); CARBON DIOXIDE 27 MMOL/L (21-32); CHLORIDE 102 MMOL/L (98-107); CREATININE SERUM 0.88 MG/DL (0.60-1.30); GFR ESTIMATED > 60; GLUCOSE 97 MG/DL (70-105); POTASSIUM 3.4 MMOL/L (3.6-5.0); SODIUM 140 MMOL/L (135-145); TOTAL PROTEIN 7.4 GM/DL (6.4-8.2)
== END 2018-11-12 | disposition home or self-care (01) ==
LOC: ONC 14:18
PROVIDERS: ATTEND Internal Medicine Hematology & Oncology
DX: Z08 Encounter for follow-up examination after completed treatment for malignant neoplasm (principal); Z85.3 Personal history of malignant neoplasm of breast; N63.11 Unspecified lump in the right breast, upper outer quadrant; I89.0 Lymphedema, not elsewhere classified; D64.9 Anemia, unspecified; E03.9 Hypothyroidism, unspecified; Z90.12 Acquired absence of left breast and nipple; Z90.710 Acquired absence of both cervix and uterus; Z92.21 Personal history of antineoplastic chemotherapy; Z45.2 Encounter for adjustment and management of vascular access device
CPT/HCPCS: 36591; 80053; 85025; 96523

== ENCOUNTER → 2018-11-17 | Outpatient (CLI) | payer BC ==
[~2018-11-17] MED LIST changes: +BARIUM SUSPENSION 2.1% (VANILLA SILQ) 450 ML PO ONE; +CATHETER FLUSH 10 ML SYR IV PRN; +IOHEXOL 350 MG/ML 100 ML (OMNIPAQUE 350) VIAL IV ONE; +NS 100 ML (IVPB) BAG IV ONE; +RECEIVED CONTRAST (Hold Metformin) IV SCH
--- NOTE | 2018-11-17 11:49 | Diagnostic Imaging Report ---
PROCEDURE: CT chest, abdomen, and pelvis with contrast. TECHNIQUE: Multiple contiguous axial images were obtained through the chest, abdomen, and pelvis after the administration of intravenous contrast. INDICATION: Breast carcinoma. Correlation is made with prior CT chest and abdomen study from 09/26/2017. CT CHEST: No axillary or internal mammary lymphadenopathy is seen. There are postsurgical changes of bilateral mastectomy. No definite mediastinal or hilar lymphadenopathy is seen. There is no pericardial or pleural fluid detected. Parenchymal evaluation demonstrates a tiny nodule adjacent to the major fissure on the left in the superior segment left lower lobe, stable when compared to prior exam at approximately 3 mm. No other pulmonary nodules or masses are seen. The bony structures are unremarkable. IMPRESSION: Stable unremarkable CT of the chest when compared with exam from 09/26/2017. No thoracic lymphadenopathy or evidence of pulmonary metastatic disease is identified. CT ABDOMEN AND PELVIS: No discrete liver mass is identified. The gallbladder is unremarkable. No biliary duct dilatation is seen. The pancreas and spleen are unremarkable. No adrenal mass is identified. The kidneys are unremarkable. Aorta is nonaneurysmal. No central, retroperitoneal or mesenteric lymphadenopathy is seen. The small and large bowel loops are normal caliber. There is no obstruction. There is no ascites. The bladder is decompressed. No inguinal or iliac lymphadenopathy is seen. The bony structures appear nonacute. IMPRESSION: Stable CT of the abdomen and pelvis and study from 09/26/2017. There is no evidence of abdominal or pelvic metastatic disease. Dictated by: Dictated on workstation # [id number]
--- NOTE | 2018-11-17 17:52 | Diagnostic Imaging Report ---
INDICATION: Low back pain and right breast carcinoma. TECHNIQUE: The patient was administered 25.5 mCi technetium 99m MDP intravenously and whole body imaging was performed after three-hour delay. FINDINGS: There is normal uptake of activity by the axial and appendicular skeleton. There is uptake by the kidneys with excretion into the urinary bladder. There is mild uptake in bilateral feet, consistent with degenerative change. There is very mild uptake in the midlumbar spine, corresponding with the degenerative changes noted on CT study earlier the same day. No abnormal foci are seen to suggest osseous metastatic disease. IMPRESSION: No scintigraphic evidence of osseous metastatic disease. Dictated by: Dictated on workstation # [id number]
== END ==
LOC: CARD 10:49
PROVIDERS: ATTEND Nurse Practitioner Adult Health
DX: C50.411 Malignant neoplasm of upper-outer quadrant of right female breast (principal); M54.5 Low back pain; Z85.3 Personal history of malignant neoplasm of breast; Z15.01 Genetic susceptibility to malignant neoplasm of breast
CPT/HCPCS: 71260; 74177; 78306

== ENCOUNTER 2019-02-06 14:25 | Outpatient (RCR) | payer BC ==
[2018-11-14 15:35] LABS: BASOPHILS # (AUTO) 0.1 10^3/uL (0.0-0.1); BASOPHILS % (AUTO) 1 % (0-10); EOSINOPHILS # (AUTO) 0.2 10^3/uL (0.0-0.3); EOSINOPHILS % (AUTO) 2 % (0-10); HEMATOCRIT 40 % (35-52); HEMOGLOBIN 13.1 G/DL (11.5-16.0); LYMPHOCYTES # (AUTO) 2.4 X 10^3 (1.0-4.0); LYMPHOCYTES % (AUTO) 32 % (12-44); MEAN CORPUSCULAR HEMOGLOBIN 29 PG (25-34); MEAN CORPUSCULAR HGB CONC 33 G/DL (32-36); MEAN CORPUSCULAR VOLUME 90 FL (80-99); MEAN PLATELET VOLUME 10.3 FL (7.4-10.4); MONOCYTES # (AUTO) 0.6 X 10^3 (0.0-1.0); MONOCYTES % (AUTO) 8 % (0-12); NEUTROPHILS # (AUTO) 4.3 X 10^3 (1.8-7.8); NEUTROPHILS % (AUTO) 57 % (42-75); PLATELET COUNT 258 10^3/uL (130-400); WHITE BLOOD COUNT 7.5 10^3/uL (4.3-11.0)
[2018-11-14 15:54] LABS: ALANINE AMINOTRANSFERASE 23 U/L (0-55); ALBUMIN 4.4 GM/DL (3.2-4.5); ALKALINE PHOSPHATASE 82 U/L (40-136); BILIRUBIN,TOTAL 0.3 MG/DL (0.1-1.0); BUN/CREATININE RATIO 17; CALCIUM 9.7 MG/DL (8.5-10.1); CARBON DIOXIDE 30 MMOL/L (21-32); CHLORIDE 102 MMOL/L (98-107); CREATININE SERUM 0.92 MG/DL (0.60-1.30); GFR ESTIMATED > 60; GLUCOSE 75 MG/DL (70-105); SODIUM 143 MMOL/L (135-145); TOTAL PROTEIN 7.3 GM/DL (6.4-8.2)
[~2019-02-06 14:25] MED LIST changes: -BARIUM SUSPENSION 2.1% (VANILLA SILQ) 450 ML PO ONE; -CATHETER FLUSH 10 ML SYR IV PRN; -IOHEXOL 350 MG/ML 100 ML (OMNIPAQUE 350) VIAL IV ONE; -NS 100 ML (IVPB) BAG IV ONE; -RECEIVED CONTRAST (Hold Metformin) IV SCH
[2019-02-06 15:38] LABS: BASOPHILS # (AUTO) 0.1 10^3/uL (0.0-0.1); BASOPHILS % (AUTO) 1 % (0-10); EOSINOPHILS # (AUTO) 0.1 10^3/uL (0.0-0.3); EOSINOPHILS % (AUTO) 1 % (0-10); HEMATOCRIT 41 % (35-52); HEMOGLOBIN 13.7 G/DL (11.5-16.0); LYMPHOCYTES # (AUTO) 2.1 X 10^3 (1.0-4.0); LYMPHOCYTES % (AUTO) 30 % (12-44); MEAN CORPUSCULAR HEMOGLOBIN 30 PG (25-34); MEAN CORPUSCULAR HGB CONC 34 G/DL (32-36); MEAN CORPUSCULAR VOLUME 89 FL (80-99); MEAN PLATELET VOLUME 10.2 FL (7.4-10.4); MONOCYTES # (AUTO) 0.6 X 10^3 (0.0-1.0); MONOCYTES % (AUTO) 9 % (0-12); NEUTROPHILS # (AUTO) 4.1 X 10^3 (1.8-7.8); NEUTROPHILS % (AUTO) 58 % (42-75); PLATELET COUNT 259 10^3/uL (130-400)
[2019-02-06 15:53] LABS: ALANINE AMINOTRANSFERASE 24 U/L (0-55); ALBUMIN 4.5 GM/DL (3.2-4.5); ALKALINE PHOSPHATASE 97 U/L (40-136); BILIRUBIN,TOTAL 0.4 MG/DL (0.1-1.0); BUN/CREATININE RATIO 18; CALCIUM 10.3 MG/DL (8.5-10.1); CARBON DIOXIDE 30 MMOL/L (21-32); CHLORIDE 102 MMOL/L (98-107); CREATININE SERUM 0.91 MG/DL (0.60-1.30); GFR ESTIMATED > 60; GLUCOSE 81 MG/DL (70-105); POTASSIUM 3.9 MMOL/L (3.6-5.0); SODIUM 140 MMOL/L (135-145); TOTAL PROTEIN 7.6 GM/DL (6.4-8.2)
== END 2019-02-12 | disposition home or self-care (01) ==
LOC: ONC 14:25
PROVIDERS: ATTEND Internal Medicine Hematology & Oncology
DX: Z08 Encounter for follow-up examination after completed treatment for malignant neoplasm (principal); Z85.3 Personal history of malignant neoplasm of breast; N63.11 Unspecified lump in the right breast, upper outer quadrant; I89.0 Lymphedema, not elsewhere classified; D64.9 Anemia, unspecified; E03.9 Hypothyroidism, unspecified; Z90.12 Acquired absence of left breast and nipple; Z90.710 Acquired absence of both cervix and uterus; Z92.21 Personal history of antineoplastic chemotherapy
CPT/HCPCS: 36591; 80053; 85025; 96523

== ENCOUNTER 2019-06-07 12:27 | Outpatient (RCR) | payer BC ==
[2019-04-26 13:06] LABS: BASOPHILS % (AUTO) 1 % (0-10); EOSINOPHILS # (AUTO) 0.1 10^3/uL (0.0-0.3); EOSINOPHILS % (AUTO) 2 % (0-10); HEMATOCRIT 44 % (35-52); HEMOGLOBIN 14.5 G/DL (11.5-16.0); LYMPHOCYTES # (AUTO) 1.7 X 10^3 (1.0-4.0); LYMPHOCYTES % (AUTO) 29 % (12-44); MEAN CORPUSCULAR HEMOGLOBIN 30 PG (25-34); MEAN CORPUSCULAR HGB CONC 33 G/DL (32-36); MEAN CORPUSCULAR VOLUME 89 FL (80-99); MEAN PLATELET VOLUME 10.1 FL (7.4-10.4); MONOCYTES # (AUTO) 0.4 X 10^3 (0.0-1.0); MONOCYTES % (AUTO) 8 % (0-12); NEUTROPHILS # (AUTO) 3.4 X 10^3 (1.8-7.8); NEUTROPHILS % (AUTO) 60 % (42-75); PLATELET COUNT 259 10^3/uL (130-400); RED CELL DISTRIBUTION WIDTH 12.6 % (10.0-14.5); WHITE BLOOD COUNT 5.6 10^3/uL (4.3-11.0)
[2019-04-26 13:22] LABS: ALBUMIN 4.4 GM/DL (3.2-4.5); BILIRUBIN,TOTAL 0.4 MG/DL (0.1-1.0); CALCIUM 10.2 MG/DL (8.5-10.1); CREATININE SERUM 0.96 MG/DL (0.60-1.30); POTASSIUM 3.4 MMOL/L (3.6-5.0); TOTAL PROTEIN 7.5 GM/DL (6.4-8.2)
[~2019-06-07 12:27] MED LIST changes: -OMEP20CA12 PO; +OMEP20CA13 PO
== END 2019-06-20 | disposition home or self-care (01) ==
LOC: ONC 12:27
PROVIDERS: ATTEND Internal Medicine Hematology & Oncology
DX: Z08 Encounter for follow-up examination after completed treatment for malignant neoplasm (principal); Z85.3 Personal history of malignant neoplasm of breast; N63.11 Unspecified lump in the right breast, upper outer quadrant; I89.0 Lymphedema, not elsewhere classified; D64.9 Anemia, unspecified; E03.9 Hypothyroidism, unspecified; Z90.12 Acquired absence of left breast and nipple; Z90.710 Acquired absence of both cervix and uterus; Z92.21 Personal history of antineoplastic chemotherapy; Z45.2 Encounter for adjustment and management of vascular access device
CPT/HCPCS: 80053; 85025; 96523

== ENCOUNTER 2019-09-10 14:32 | Outpatient (RCR) | payer BC ==
[2019-07-30 09:47] LABS: BASOPHILS # (AUTO) 0.1 10^3/uL (0.0-0.1); BASOPHILS % (AUTO) 1 % (0-10); EOSINOPHILS # (AUTO) 0.1 10^3/uL (0.0-0.3); EOSINOPHILS % (AUTO) 3 % (0-10); HEMATOCRIT 40 % (35-52); HEMOGLOBIN 13.3 G/DL (11.5-16.0); LYMPHOCYTES # (AUTO) 1.8 X 10^3 (1.0-4.0); LYMPHOCYTES % (AUTO) 32 % (12-44); MEAN CORPUSCULAR HEMOGLOBIN 29 PG (25-34); MEAN CORPUSCULAR HGB CONC 33 G/DL (32-36); MEAN CORPUSCULAR VOLUME 88 FL (80-99); MEAN PLATELET VOLUME 10.1 FL (7.4-10.4); MONOCYTES # (AUTO) 0.5 X 10^3 (0.0-1.0); MONOCYTES % (AUTO) 9 % (0-12); NEUTROPHILS # (AUTO) 3.1 X 10^3 (1.8-7.8); NEUTROPHILS % (AUTO) 55 % (42-75); PLATELET COUNT 259 10^3/uL (130-400); RED CELL DISTRIBUTION WIDTH 13.2 % (10.0-14.5); WHITE BLOOD COUNT 5.6 10^3/uL (4.3-11.0)
[2019-07-30 10:06] LABS: BUN/CREATININE RATIO 20; CARBON DIOXIDE 28 MMOL/L (21-32); CHLORIDE 103 MMOL/L (98-107); POTASSIUM 3.6 MMOL/L (3.6-5.0); SODIUM 141 MMOL/L (135-145)
[2019-07-30 10:07] LABS: ALANINE AMINOTRANSFERASE 29 U/L (0-55); ALBUMIN 4.3 GM/DL (3.2-4.5); ALKALINE PHOSPHATASE 89 U/L (40-136); BILIRUBIN,TOTAL 0.4 MG/DL (0.1-1.0); CALCIUM 9.7 MG/DL (8.5-10.1); GFR ESTIMATED > 60; GLUCOSE 139 MG/DL (70-105); TOTAL PROTEIN 7.9 GM/DL (6.4-8.2)
== END 2019-10-28 | disposition home or self-care (01) ==
LOC: ONC 14:32
PROVIDERS: ATTEND Internal Medicine Hematology & Oncology
DX: Z08 Encounter for follow-up examination after completed treatment for malignant neoplasm (principal); Z85.3 Personal history of malignant neoplasm of breast; N63.11 Unspecified lump in the right breast, upper outer quadrant; I89.0 Lymphedema, not elsewhere classified; D64.9 Anemia, unspecified; E03.9 Hypothyroidism, unspecified; Z90.12 Acquired absence of left breast and nipple; Z90.710 Acquired absence of both cervix and uterus; Z92.21 Personal history of antineoplastic chemotherapy; Z45.2 Encounter for adjustment and management of vascular access device
CPT/HCPCS: 36591; 80053; 85025; 96523

== ENCOUNTER 2020-01-14 09:37 | Outpatient (RCR) | payer BC ==
[~2020-01-14 09:37] MED LIST changes: -OMEP20CA13 PO; +OMEP20CA18 PO
[2020-01-14 09:53] LABS: BASOPHILS # (AUTO) 0.1 10^3/uL (0.0-0.1); BASOPHILS % (AUTO) 2 % (0-10); EOSINOPHILS # (AUTO) 0.1 10^3/uL (0.0-0.3); EOSINOPHILS % (AUTO) 2 % (0-10); HEMATOCRIT 44 % (35-52); HEMOGLOBIN 14.5 G/DL (11.5-16.0); LYMPHOCYTES # (AUTO) 1.7 X 10^3 (1.0-4.0); LYMPHOCYTES % (AUTO) 29 % (12-44); MEAN CORPUSCULAR HEMOGLOBIN 29 PG (25-34); MEAN CORPUSCULAR HGB CONC 33 G/DL (32-36); MEAN CORPUSCULAR VOLUME 90 FL (80-99); MEAN PLATELET VOLUME 10.2 FL (7.4-10.4); MONOCYTES # (AUTO) 0.4 X 10^3 (0.0-1.0); MONOCYTES % (AUTO) 7 % (0-12); NEUTROPHILS # (AUTO) 3.5 X 10^3 (1.8-7.8); NEUTROPHILS % (AUTO) 60 % (42-75); PLATELET COUNT 263 10^3/uL (130-400); RED CELL DISTRIBUTION WIDTH 13.1 % (10.0-14.5); WHITE BLOOD COUNT 5.9 10^3/uL (4.3-11.0)
[2020-01-14 10:12] LABS: ALBUMIN 4.4 GM/DL (3.2-4.5); BILIRUBIN,TOTAL 0.4 MG/DL (0.1-1.0); CALCIUM 9.5 MG/DL (8.5-10.1); CREATININE SERUM 1.15 MG/DL (0.60-1.30); POTASSIUM 3.6 MMOL/L (3.6-5.0); TOTAL PROTEIN 7.5 GM/DL (6.4-8.2)
== END 2020-03-02 | disposition home or self-care (01) ==
LOC: ONC 09:37
PROVIDERS: ATTEND Internal Medicine Hematology & Oncology
DX: C50.411 Malignant neoplasm of upper-outer quadrant of right female breast (principal); G62.9 Polyneuropathy, unspecified; N63.11 Unspecified lump in the right breast, upper outer quadrant; I89.0 Lymphedema, not elsewhere classified; D64.9 Anemia, unspecified; E03.9 Hypothyroidism, unspecified; Z90.12 Acquired absence of left breast and nipple; Z90.710 Acquired absence of both cervix and uterus; Z92.21 Personal history of antineoplastic chemotherapy; Z85.3 Personal history of malignant neoplasm of breast; Z15.01 Genetic susceptibility to malignant neoplasm of breast; Z45.2 Encounter for adjustment and management of vascular access device
CPT/HCPCS: 36591; 80053; 85025; 96523

== ENCOUNTER 2020-06-02 09:39 | Outpatient (RCR) | payer MEDICARE, OTHER, MEDICAID | END 2020-06-29 | disposition home or self-care (01) | LOC: ONC 09:39 | PROVIDERS: ATTEND Internal Medicine Hematology & Oncology | DX: Z45.2 Encounter for adjustment and management of vascular access device (principal); C50.411 Malignant neoplasm of upper-outer quadrant of right female breast; N63.11 Unspecified lump in the right breast, upper outer quadrant; I89.0 Lymphedema, not elsewhere classified; D64.9 Anemia, unspecified; E03.9 Hypothyroidism, unspecified; G62.9 Polyneuropathy, unspecified; Z90.710 Acquired absence of both cervix and uterus; Z92.21 Personal history of antineoplastic chemotherapy; Z85.3 Personal history of malignant neoplasm of breast; Z15.01 Genetic susceptibility to malignant neoplasm of breast; Z90.12 Acquired absence of left breast and nipple | CPT/HCPCS: 96523 ==

== ENCOUNTER → 2020-10-13 | Outpatient (RCR) | payer MEDICARE, OTHER, MEDICAID ==
[2020-07-15 13:25] LABS: BASOPHILS # (AUTO) 0.1 10^3/uL (0.0-0.1); BASOPHILS % (AUTO) 1 % (0-10); EOSINOPHILS # (AUTO) 0.2 10^3/uL (0.0-0.3); EOSINOPHILS % (AUTO) 3 % (0-10); HEMATOCRIT 39 % (35-52); HEMOGLOBIN 13.1 G/DL (11.5-16.0); LYMPHOCYTES # (AUTO) 2.1 X 10^3 (1.0-4.0); LYMPHOCYTES % (AUTO) 37 % (12-44); MEAN CORPUSCULAR HEMOGLOBIN 30 PG (25-34); MEAN CORPUSCULAR HGB CONC 33 G/DL (32-36); MEAN CORPUSCULAR VOLUME 89 FL (80-99); MEAN PLATELET VOLUME 10.2 FL (7.4-10.4); MONOCYTES # (AUTO) 0.4 X 10^3 (0.0-1.0); MONOCYTES % (AUTO) 7 % (0-12); NEUTROPHILS # (AUTO) 2.9 X 10^3 (1.8-7.8); NEUTROPHILS % (AUTO) 52 % (42-75); PLATELET COUNT 241 10^3/uL (130-400); WHITE BLOOD COUNT 5.5 10^3/uL (4.3-11.0)
[2020-07-15 13:48] LABS: ALANINE AMINOTRANSFERASE 21 U/L (0-55); ALKALINE PHOSPHATASE 83 U/L (40-136); BILIRUBIN,TOTAL 0.4 MG/DL (0.1-1.0); BUN/CREATININE RATIO 15; CALCIUM 9.1 MG/DL (8.5-10.1); CARBON DIOXIDE 30 MMOL/L (21-32); CHLORIDE 101 MMOL/L (98-107); CREATININE SERUM 0.93 MG/DL (0.60-1.30); GFR ESTIMATED > 60; GLUCOSE 128 MG/DL (70-105); POTASSIUM 3.5 MMOL/L (3.6-5.0); SODIUM 140 MMOL/L (135-145)
== END | disposition home or self-care (01) ==
LOC: ONC 07-15 13:43
PROVIDERS: ATTEND Internal Medicine Hematology & Oncology
DX: C50.411 Malignant neoplasm of upper-outer quadrant of right female breast (principal); N63.11 Unspecified lump in the right breast, upper outer quadrant; I89.0 Lymphedema, not elsewhere classified; D63.0 Anemia in neoplastic disease; E03.9 Hypothyroidism, unspecified; G62.9 Polyneuropathy, unspecified; N92.0 Excessive and frequent menstruation with regular cycle; M19.071 Primary osteoarthritis, right ankle and foot; M19.072 Primary osteoarthritis, left ankle and foot; Z15.01 Genetic susceptibility to malignant neoplasm of breast; Z90.11 Acquired absence of right breast and nipple; Z90.710 Acquired absence of both cervix and uterus; Z92.21 Personal history of antineoplastic chemotherapy; Z85.3 Personal history of malignant neoplasm of breast; Z98.890 Other specified postprocedural states
CPT/HCPCS: 80053; 85025; G0463; 36591; 96523

== ENCOUNTER 2021-02-10 13:00 | Outpatient (RCR) | payer MEDICARE, OTHER, MEDICAID ==
[2020-12-30 13:13] LABS: BASOPHILS # (AUTO) 0.1 10^3/uL (0.0-0.1); BASOPHILS % (AUTO) 2 % (0-10); EOSINOPHILS # (AUTO) 0.2 10^3/uL (0.0-0.3); EOSINOPHILS % (AUTO) 3 % (0-10); HEMATOCRIT 42 % (35-52); HEMOGLOBIN 13.4 g/dL (11.5-16.0); LYMPHOCYTES # (AUTO) 2.2 10^3/uL (1.0-4.0); LYMPHOCYTES % (AUTO) 37 % (12-44); MEAN CORPUSCULAR HEMOGLOBIN 29 pg (25-34); MEAN CORPUSCULAR HGB CONC 32 g/dL (32-36); MEAN CORPUSCULAR VOLUME 91 fL (80-99); MEAN PLATELET VOLUME 10.1 fL (9.0-12.2); MONOCYTES # (AUTO) 0.5 10^3/uL (0.0-1.0); MONOCYTES % (AUTO) 9 % (0-12); NEUTROPHILS # (AUTO) 2.9 10^3/uL (1.8-7.8); NEUTROPHILS % (AUTO) 50 % (42-75); PLATELET COUNT 287 10^3/uL (130-400); WHITE BLOOD COUNT 5.9 10^3/uL (4.3-11.0)
[2020-12-30 13:33] LABS: ALBUMIN 4.3 GM/DL (3.2-4.5); BILIRUBIN,TOTAL 0.3 MG/DL (0.1-1.0); CALCIUM 9.4 MG/DL (8.5-10.1); CREATININE SERUM 1.05 MG/DL (0.60-1.30); POTASSIUM 3.4 MMOL/L (3.6-5.0); TOTAL PROTEIN 7.3 GM/DL (6.4-8.2)
[~2021-02-10 13:00] MED LIST changes: -ACYC400T PO; +ACYC400T21 PO
[2021-02-10 13:39] LABS: BASOPHILS # (AUTO) 0.1 10^3/uL (0.0-0.1); BASOPHILS % (AUTO) 1 % (0-10); EOSINOPHILS # (AUTO) 0.2 10^3/uL (0.0-0.3); EOSINOPHILS % (AUTO) 4 % (0-10); HEMATOCRIT 43 % (35-52); HEMOGLOBIN 14.2 g/dL (11.5-16.0); LYMPHOCYTES # (AUTO) 2.1 10^3/uL (1.0-4.0); LYMPHOCYTES % (AUTO) 36 % (12-44); MEAN CORPUSCULAR HEMOGLOBIN 30 pg (25-34); MEAN CORPUSCULAR HGB CONC 33 g/dL (32-36); MEAN CORPUSCULAR VOLUME 90 fL (80-99); MONOCYTES # (AUTO) 0.5 10^3/uL (0.0-1.0); MONOCYTES % (AUTO) 8 % (0-12); NEUTROPHILS % (AUTO) 51 % (42-75); PLATELET COUNT 291 10^3/uL (130-400); WHITE BLOOD COUNT 5.9 10^3/uL (4.3-11.0)
[2021-02-10 13:53] LABS: CALCIUM 9.4 MG/DL (8.5-10.1); CREATININE SERUM 1.2 MG/DL (0.60-1.30); POTASSIUM 3.8 MMOL/L (3.6-5.0)
== END 2021-02-15 | disposition home or self-care (01) ==
LOC: ONC 13:00
PROVIDERS: ATTEND Internal Medicine Hematology & Oncology
DX: Z45.2 Encounter for adjustment and management of vascular access device (principal); C50.411 Malignant neoplasm of upper-outer quadrant of right female breast; N63.11 Unspecified lump in the right breast, upper outer quadrant; I89.0 Lymphedema, not elsewhere classified; D63.0 Anemia in neoplastic disease; E03.9 Hypothyroidism, unspecified; G62.9 Polyneuropathy, unspecified; N92.0 Excessive and frequent menstruation with regular cycle; M19.071 Primary osteoarthritis, right ankle and foot; M19.072 Primary osteoarthritis, left ankle and foot; Z15.01 Genetic susceptibility to malignant neoplasm of breast; Z90.11 Acquired absence of right breast and nipple; Z90.710 Acquired absence of both cervix and uterus; Z92.21 Personal history of antineoplastic chemotherapy; Z85.3 Personal history of malignant neoplasm of breast; Z98.890 Other specified postprocedural states
CPT/HCPCS: 36591; 80048; 80053; 85025; 96523

== ENCOUNTER → 2021-02-17 | Outpatient (CLI) | payer MEDICARE, OTHER, MEDICAID ==
[~2021-02-17] MED LIST changes: +ACYC400T PO; -ACYC400T21 PO
--- NOTE | 2021-02-17 15:35 | Diagnostic Imaging Report ---
INDICATION: Postmenopausal female. COMPARISON: None. FINDINGS: AP Spine L1-L4: [BMD (g/cm2): 1.061] [T-Score: -1.2] [Z-Score: -1.2] [BMD Previous: na] [BMD % Change: na] LT Hip Neck: [BMD (g/cm2): 0.893] [T-Score: -1.0] [Z-Score: -0.6] LT Hip Total: [BMD (g/cm2):0.935] [T-Score:-0.6] [Z-Score: -0.5] [BMD Previous: na] [BMD % Change: na] RT Hip Neck: [BMD (g/cm2):0.924] [T-Score:-0.8] [Z-Score:-0.4] RT Hip Total: [BMD (g/cm2):0.990] [T-score:-0.1] [Z-Score:-0.1] [BMD Previous:na] [BMD % Change:na] *Indicates significant change from prior examination based on 95% confidence level. World Health Organization criteria for BMD interpretation classify patients as Normal (T-score at or above -1.0), Osteopenic (T-score between -1.0 and -2.5) or Osteoporotic (T-score at or below -2.5). LIMITATIONS AND MODIFICATION: None. FRACTURE RISK (FRAX SCORE): The ten year probability of (%): Major Osteoporotic Fracture: [na] Hip Fracture: [na] IMPRESSION: 1. Osteopenia (Low bone mass). 2. Baseline examination. 3. See below National Osteoporosis Foundation guidelines on when to potentially initiate pharmacologic therapy. Based on the National Osteoporosis Foundation Guidelines, pharmacologic treatment should be initiated in any of the following, unless clinical conditions suggest otherwise: * Any patient with prior fragility fracture of the hip or vertebrae. A spine fracture indicates 5X risk for subsequent spine fracture and 2X risk for subsequent hip fracture. * Osteoporosis (T-score <-2.5). * Postmenopausal women and men age 50 and older with low bone mass/osteopenia (T-score between -1.0 and -2.5) by DXA and 10-year major osteoporotic fracture greater than 20% or a 10-year probability of hip fracture greater than 3%. These fracture risks are supplied above in the FRAX score, if applicable. * Clinician judgement and/or patient preferences may indicate treatment for people with 10-year fracture probabilities above or below these levels. Dictated by: Dictated on workstation # [id number]
== END ==
LOC: RAD 14:30
PROVIDERS: ATTEND Nurse Practitioner Adult Health
DX: C50.419 Malignant neoplasm of upper-outer quadrant of unspecified female breast (principal); E28.319 Asymptomatic premature menopause; M85.80 Other specified disorders of bone density and structure, unspecified site
CPT/HCPCS: 77080

== ENCOUNTER → 2021-02-19 | Outpatient (CLI) | payer MEDICARE, OTHER, MEDICAID ==
[~2021-02-19] MED LIST changes: -ACYC400T PO; +ACYC400T21 PO; +BARIUM SUSPENSION 2.1% (VANILLA SILQ) 450 ML PO ONE; +HOLD METFORMIN - RECEIVED CONTRAST 20 ML VIAL IV SCH; +IOHEXOL 350 MG/ML 100 ML (OMNIPAQUE 350) VIAL IV ONE; +NS 100 ML (IVPB) BAG IV ONE
[2021-02-19] MEDS: CATHETER FLUSH 10 ML SYR IV PRN ×2 (12:18→12:32)
--- NOTE | 2021-02-19 13:03 | Diagnostic Imaging Report ---
EXAMINATION: CT Chest with intravenous contrast, CT Abdomen and Pelvis without and with intravenous contrast. TECHNIQUE: Pre and post intravenous contrast axial imaging of the abdomen and pelvis and post contrast axial imaging of the chest were performed. All CT scans use one or more of the following dose optimizing techniques: automated exposure control, MA and/or KvP adjustment based on a patient size and exam type, or iterative reconstruction. HISTORY: MALIGNANT NEOPLASM OF UPPER OUTER FEMALE BREAST COMPARISON: CT chest, abdomen and pelvis 11/17/2018 FINDINGS: Thyroid: The thyroid is normal. Mediastinum: Heart size is normal without significant pericardial effusion. The aorta is normal in caliber. There are multiple prominent right axillary lymph nodes which appear to be increased in size from 11/17/2018. The largest node measures 1.6 x 0.8 cm. Lungs and airways: There are mild reticulonodular opacities within the lower lungs, right greater than left. No suspicious pulmonary nodule. No pleural effusion or pneumothorax. The airways are normal. Solid organs: The liver is normal without focal lesion. The gallbladder is surgically absent. There is no biliary ductal dilation. Pancreas is normal. Spleen is normal. Adrenal glands are normal. The kidneys are normal without hydronephrosis. Bowel: There is a small duodenal diverticulum. No bowel obstruction. The colon and appendix are normal. Peritoneum: There is no intraperitoneal free fluid or free air. No suspicious lymphadenopathy. Vasculature: Normal without aneurysm. Musculoskeletal: No suspicious osseous lesion or compression fracture. Pelvis: The uterus is surgically absent. No adnexal mass. The urinary bladder is normal. IMPRESSION: 1. Multiple right axillary lymph nodes are not pathologically enlarged but have increased in size from 11/17/2018. 2. No other findings of metastatic disease. 3. Reticulonodular opacities within the lung bases represent atypical infection. Dictated by: Dictated on workstation # [id number]
--- NOTE | 2021-02-19 16:12 | Diagnostic Imaging Report ---
INDICATION: Right shoulder pain radiating into the back. History of a fall in December. TECHNIQUE: Patient received 25 mCi intravenous technetium 99m MDP after 3 hours whole-body planar imaging performed. COMPARISON: Exam compared with whole-body bone scan performed 11/17/2018. At that time it was for the purpose of breast cancer. FINDINGS: There is focal abnormal uptake about the right proximal humerus near the neck head junction. This could be posttraumatic or metastatic. The arms are elevated on recent CT in and this is above the field of view of that study. Plain film correlation recommended. This is new from the prior. Calvarium and spine are unremarkable, aside from some chronic mid to lower lumbar spondylotic pattern. The ribs are unremarkable. There is soft tissue uptake and excretion by urinary tracts, physiologic. IMPRESSION: 1. New fairly intense abnormal uptake proximal right humerus may be from a healing fracture or metastatic. Plain film correlation recommended given this is outside the [id number] of the recent chest CT of the same date. 2. Stable lumbar spondylosis. No other potential metastatic deposit or fracture. Dictated by: Dictated on workstation # [id number]
== END ==
LOC: CARD 12:00
PROVIDERS: ATTEND Nurse Practitioner Adult Health
DX: M47.816 Spondylosis without myelopathy or radiculopathy, lumbar region (principal); C50.419 Malignant neoplasm of upper-outer quadrant of unspecified female breast; E28.319 Asymptomatic premature menopause; R91.8 Other nonspecific abnormal finding of lung field; R59.0 Localized enlarged lymph nodes; Z91.81 History of falling
CPT/HCPCS: 71260; 74178; 78306; A9503

== ENCOUNTER 2021-06-16 09:54 | Outpatient (RCR) | payer MEDICARE, OTHER, MEDICAID ==
[2021-05-05 15:51] LABS: BASOPHILS # (AUTO) 0.1 10^3/uL (0.0-0.1); BASOPHILS % (AUTO) 1 % (0-10); EOSINOPHILS # (AUTO) 0.1 10^3/uL (0.0-0.3); EOSINOPHILS % (AUTO) 1 % (0-10); HEMATOCRIT 42 % (35-52); HEMOGLOBIN 13.5 g/dL (11.5-16.0); LYMPHOCYTES # (AUTO) 1.8 10^3/uL (1.0-4.0); LYMPHOCYTES % (AUTO) 27 % (12-44); MEAN CORPUSCULAR HEMOGLOBIN 29 pg (25-34); MEAN CORPUSCULAR HGB CONC 32 g/dL (32-36); MEAN CORPUSCULAR VOLUME 91 fL (80-99); MEAN PLATELET VOLUME 10.4 fL (9.0-12.2); MONOCYTES # (AUTO) 0.5 10^3/uL (0.0-1.0); MONOCYTES % (AUTO) 7 % (0-12); NEUTROPHILS # (AUTO) 4.2 10^3/uL (1.8-7.8); NEUTROPHILS % (AUTO) 64 % (42-75); PLATELET COUNT 250 10^3/uL (130-400); WHITE BLOOD COUNT 6.6 10^3/uL (4.3-11.0)
[2021-05-05 16:19] LABS: ALBUMIN 4.1 GM/DL (3.2-4.5); BILIRUBIN,TOTAL 0.3 MG/DL (0.1-1.0); CALCIUM 9.9 MG/DL (8.5-10.1); CREATININE SERUM 1.05 MG/DL (0.60-1.30); POTASSIUM 3.4 MMOL/L (3.6-5.0); TOTAL PROTEIN 7.2 GM/DL (6.4-8.2)
[~2021-06-16 09:54] MED LIST changes: -BARIUM SUSPENSION 2.1% (VANILLA SILQ) 450 ML PO ONE; -HOLD METFORMIN - RECEIVED CONTRAST 20 ML VIAL IV SCH; -IOHEXOL 350 MG/ML 100 ML (OMNIPAQUE 350) VIAL IV ONE; -NS 100 ML (IVPB) BAG IV ONE
[2021-06-23] MEDS ORDERED: DULO60CA59 PO (17:09)
[2021-06-23] MEDS ORDERED: CALC-823 PO (17:09)
[2021-06-23] MEDS ORDERED: CHOL400T29 PO (17:09)
[2021-06-23] MEDS ORDERED: NRT10C PO (17:09)
[2021-06-23] MEDS ORDERED: GBPN600T PO (17:09)
[2021-06-23] MEDS ORDERED: ASPI-999 PO (17:09)
== END 2021-06-23 | disposition home or self-care (01) ==
LOC: ONC 09:54
PROVIDERS: ATTEND Internal Medicine Hematology & Oncology
DX: Z45.2 Encounter for adjustment and management of vascular access device (principal); Z85.3 Personal history of malignant neoplasm of breast; I89.0 Lymphedema, not elsewhere classified; D63.0 Anemia in neoplastic disease; E03.9 Hypothyroidism, unspecified; G62.9 Polyneuropathy, unspecified; N92.0 Excessive and frequent menstruation with regular cycle; M19.071 Primary osteoarthritis, right ankle and foot; M19.072 Primary osteoarthritis, left ankle and foot; I11.0 Hypertensive heart disease with heart failure; I50.30 Unspecified diastolic (congestive) heart failure; Z15.01 Genetic susceptibility to malignant neoplasm of breast; Z90.710 Acquired absence of both cervix and uterus; Z92.21 Personal history of antineoplastic chemotherapy; Z98.890 Other specified postprocedural states; Z90.13 Acquired absence of bilateral breasts and nipples
CPT/HCPCS: 80053; 82306; 85025; 96523

== ENCOUNTER 2021-06-23 05:39 | Outpatient (CLI) | payer MEDICARE, OTHER, MEDICAID ==
[~2021-06-23] VITALS: Ht 172.7 cm; Wt 103.9 kg
[2021-06-23] MEDS ORDERED: NRT10C PO (17:09)
[2021-06-23] MEDS ORDERED: DULO60CA59 PO (17:09)
[2021-06-23] MEDS ORDERED: CALC-823 PO (17:09)
[2021-06-23] MEDS ORDERED: CHOL400T29 PO (17:09)
[2021-06-23] MEDS ORDERED: ASPI-999 PO (17:09)
[2021-06-23] MEDS ORDERED: GBPN600T PO (17:09)
== END 2021-06-24 12:32 | disposition home or self-care (01) ==
LOC: PREOP 05:39
PROVIDERS: ATTEND Surgery
DX: Z01.818 Encounter for other preprocedural examination (principal)

== ENCOUNTER 2021-07-01 06:51 | Day surgery (SDC) | payer MEDICARE, OTHER, MEDICAID ==
[~2021-07-01] VITALS: Ht 172.7 cm; Wt 103.9 kg
[~2021-07-01 06:51] MED LIST changes: +ASPI-999 PO; +CALC-823 PO; +CHOL400T29 PO; +DULO60CA59 PO; +GBPN600T PO; +NRT10C PO
[2021-07-01] MEDS ORDERED: LACTATED RINGERS 1,000 ML IV STA (06:53)
[2021-07-01 07:22] VITALS: BP 128/83
[2021-07-01] MEDS ORDERED: PROPOFOL INJECTION 0 ML IV ONE (07:23)
[2021-07-01] MEDS ORDERED: MIDAZOLAM 2 MG/2 ML (VERSED) VIAL ONE (07:23)
--- NOTE | 2021-07-01 07:32 | Progress Note-Pre Operative ---
Pre-Operative Progress Note H&P Reviewed The H&P was reviewed, patient examined and no changes noted. Date Seen by Provider: Jul 01, 2021 Time Seen by Provider: 07:31 Date H&P Reviewed: Jul 01, 2021 Time H&P Reviewed: 07:31 Pre-Operative Diagnosis: screening colonoscopy BRANDON BARKER DO Jul 01, 2021 07:32
[2021-07-01] MEDS ORDERED: PROPOFOL INJECTION 50 ML IV ONE ×2 (08:10→08:13)
[2021-07-01 08:40] VITALS: BP 118/82
[2021-07-01 08:45] VITALS: BP 119/74
[2021-07-01 08:50] VITALS: BP 121/64
--- NOTE | 2021-07-01 09:06 | Anesthesia-General Post-Op ---
MAC Significant Intra-Op Events Notes Pt did have a small amount of vomit that was immediately suctioned. Patient Condition Mental Status/LOC: Same as Preop Cardiovascular: Satisfactory Nausea/Vomiting: Absent Respiratory: Satisfactory Pain: Controlled Complications: Absent Post Op Complications Complications None Follow Up Care/Instructions Patient Instructions None needed. Anesthesiology Discharge Order Discharge Order Patient is doing well, no complaints, stable vital signs, no apparent adverse anesthesia problems. No complications reported per nursing. YUE MONTERO CRNA Jul 01, 2021 09:06
[2021-07-01 09:20] VITALS: BP 123/84
[2021-07-01 09:22] VITALS: BP 123/84
--- NOTE | 2021-07-01 12:33 | Progress Note-Post Operative ---
Post-Operative Progess Note Surgeon (s)/Nurse Office (s) Surgeon BRANDON BARKER DO Nurse Office: na Pre-Operative Diagnosis screening colonoscopy Post-Operative Diagnosis ascending colon polyp ascending submucosa lipoma Procedure & Operative Findings Date of Procedure 07/01/21 Procedure Performed/Findings colonoscopy c hot bx polypectomy Anesthesia Type per vocational rehabilitation supervisor Estimated Blood Loss Estimated blood loss (mL): none Specimens/Packing Specimens Removed ascending colon polyp BRANDON BARKER DO Jul 01, 2021 12:33
--- NOTE | 2021-07-02 04:35 | OPERATIVE REPORT ---
DATE OF SERVICE: 07/01/2021 PREOPERATIVE DIAGNOSIS: Screening colonoscopy. POSTOPERATIVE DIAGNOSES: Ascending colon polyp, submucosal lipoma in the ascending colon. PROCEDURE: Colonoscopy with hot biopsy polypectomy. SURGEON: Brandon Corona DO ANESTHESIA: Per SANITIZER. ESTIMATED BLOOD LOSS: None. COMPLICATIONS: None. INDICATIONS: The patient is a 60-year-old female needing screening colonoscopy. She understands risks and benefits of procedure and wished to proceed with procedure. Consent was signed in the chart. DESCRIPTION OF PROCEDURE: The patient was taken to the endoscopy suite, placed in left lateral recumbent position. Timeout was performed. Digital rectal exam was performed. There were no palpable polyps, masses or ulcerations. Scope was inserted in the rectum and advanced to the cecum. Prep was moderate, but still significant coating on the colon. Once irrigation and suction was utilized for better visualization. Polyp was present in the ascending colon, which hot biopsy polypectomy was performed and in this area as well, there were a submucosal lipoma. Scope was then continuously retracted and irrigating and suctioning. Visualization overall was okay with irrigation and suction; however, not the best visualization small pathology. No other polyps, masses or ulcerations within the ascending, transverse, descending and sigmoid colon. Once in the rectum, scope was inserted and retracted multiple times and the scope was slowly withdrawn until completely removed. The patient tolerated procedure well without any complications. She was taken to recovery room in stable condition. RECOMMENDATIONS: The patient prep with 2-day prep, so it was not ideal for looking a very small pathology. Therefore, we would recommend a repeat colonoscopy in one year. Also, we would recommend if any changes prior to that, she should be reevaluated at that time. We would also do 2-day prep combination. The patient will follow up in 2 weeks. Job ID: [id number] DocumentID: [id number] Dictated Date: 07/01/2021 23:15:17 Knitting Supervisor Date: 07/02/2021 04:34:06 Dictated By: BRANDON CORONA DO
== END 2021-07-01 09:24 | disposition home or self-care (01) ==
LOC: ENDO 06:51
PROVIDERS: ATTEND Surgery
DX: Z12.11 Encounter for screening for malignant neoplasm of colon (principal); D12.2 Benign neoplasm of ascending colon; D17.5 Benign lipomatous neoplasm of intra-abdominal organs; I10 Essential (primary) hypertension; J45.909 Unspecified asthma, uncomplicated; G62.9 Polyneuropathy, unspecified; E66.9 Obesity, unspecified; Z68.34 Body mass index [BMI] 34.0-34.9, adult; Z79.82 Long term (current) use of aspirin; Z79.899 Other long term (current) drug therapy; Z98.890 Other specified postprocedural states; Z85.9 Personal history of malignant neoplasm, unspecified; Z85.3 Personal history of malignant neoplasm of breast

== ENCOUNTER 2021-07-22 15:00 | Outpatient (CLI) | payer MEDICARE, OTHER, MEDICAID ==
[~2021-07-22] VITALS: Ht 172.7 cm; Wt 103.9 kg
== END 2021-07-22 15:27 | disposition home or self-care (01) ==
LOC: PREOP 15:00
PROVIDERS: ATTEND Surgery
DX: Z01.818 Encounter for other preprocedural examination (principal)

== ENCOUNTER 2021-07-23 11:56 | Day surgery (SDC) | payer MEDICARE, OTHER, MEDICAID ==
[2021-07-23] VITALS (7 sets, daily range): BP systolic 121–155; BP diastolic 71–83
[~2021-07-23] VITALS: Ht 172 cm; Wt 103.9 kg
--- NOTE | 2021-07-23 12:19 | Progress Note-Pre Operative ---
Pre-Operative Progress Note H&P Reviewed The H&P was reviewed, patient examined and no changes noted. Date Seen by Provider: Jul 23, 2021 Time Seen by Provider: 12:18 Date H&P Reviewed: Jul 23, 2021 Time H&P Reviewed: 12:18 Pre-Operative Diagnosis: hx of breast ca BRANDON BARKER DO Jul 23, 2021 12:18
[2021-07-23] MEDS ORDERED: LIDOCAINE/EPI 1%-1:100,000 (XYLOCAINE) 10 ML ONE (12:22)
[2021-07-23] MEDS ORDERED: proPOfol 200 MG/20 ML (DIPRIVAN) VIAL IV ONE ×2 (12:29→13:05)
[2021-07-23] MEDS ORDERED: LACTATED RINGERS 1,000 ML IV PRN (13:00)
[2021-07-23] MEDS ORDERED: MIDAZOLAM 2 MG/2 ML (VERSED) VIAL ONE (13:05)
[2021-07-23] MEDS ORDERED: ceFAZolin INJECTION 2,000 MG ONE (13:58)
[2021-07-23] MEDS ORDERED: ceFAZolin 2 GM/50 ML (ANCEF) Premixed IV ONE (14:00)
[2021-07-23] MEDS ORDERED: BUPIVACAINE 0.5% 30 ML (SENSORCAINE) VIAL ONE (14:04)
--- NOTE | 2021-07-23 14:28 | Progress Note-Post Operative ---
Post-Operative Progess Note Surgeon (s)/Mason Liner (s) Surgeon BRANDON BARKER DO Mason Liner: na Pre-Operative Diagnosis hx of breast ca Post-Operative Diagnosis same Procedure & Operative Findings Date of Procedure 07/23/21 Procedure Performed/Findings PROCEDURE: Removal of port, COMPLICATIONS: None. INDICATIONS: The patient is a 61 year-old female who had a port previously placed. Patient is ok to have port removed. The patient was explained risk and benefits of the procedure and wished to proceed with procedure. Consent was signed on the chart. PROCEDURE: The patient was taken to the operating suite and was prepped and draped in sterile fashion. A surgical pause was performed. Local anesthetic was infiltrated to the area around the port. A number 15 blade scalpel was used to make an incision. Cautery was used to dissect down to the port which was then grasped and then dissected around. The catheter was removed in its entirety. The port was then able to be dissected out of the pocket and elevated. The wound was then irrigated with copious amounts of irrigation. Hemostasis had been achieved. The subcutaneous tissues were then reapproximated using 3-0 Vicryl. Skin was then closed using 4-0 Vicryl in a running fashion. The area was then washed and dried and Skin Affix placed over the incision. The patient tolerated the procedure well without complication and was taken to recovery room in stable condition. Anesthesia Type mac c local Estimated Blood Loss Estimated blood loss (mL): minimal Specimens/Packing Specimens Removed BRANDON Gonsalez DO Jul 23, 2021 14:28
[2021-07-23] MEDS ORDERED: ONDANSETRON 4 MG/2 ML (SDV) Z0FRAN IVP PRN (14:30)
[2021-07-23] MEDS ORDERED: fentaNYL INJ 100 MCG/2 ML AMP IVP ONE (14:30)
--- NOTE | 2021-07-23 14:31 | Anesthesia-General Post-Op ---
MAC Patient Condition Mental Status/LOC: Same as Preop Cardiovascular: Satisfactory Nausea/Vomiting: Absent Respiratory: Satisfactory Pain: Controlled Complications: Absent Post Op Complications Complications None Follow Up Care/Instructions Patient Instructions None needed. Anesthesiology Discharge Order Discharge Order Patient is doing well, no complaints, stable vital signs, no apparent adverse anesthesia problems. No complications reported per nursing. ABBIE WILKERSON CRNA Jul 23, 2021 14:31
--- NOTE | 2021-07-23 15:05 | Discharge Inst-Simple/Standard ---
Discharge Inst-Standard Patient Instructions/Follow Up Plan of Care/Instructions/FU: 2 weeks Cj Activity as Tolerated: No Discharge Diet: Regular Diet Other Inst to Patient Follow up Appt: Make appointment for 2 week. Instructions: No lifting greater than 10 pounds. No strenuous activity. May shower in 24 hours, no tub bath or soaking. Use incentive spirometer at home as directed. No Smoking Skin/Wound Care: You have special glue over your incision that will fall off on it's own. Symptoms to Report: Appetite Changes, Extremity Discoloration, Numbness/Tingling, Swelling Increased, Bleeding Excessive, Eyesight Changes, Pain Increased, Urine Color Change, Constipation(Persistent), Fever over 101 degree F, Pain/Pressure in chest, Urinating Difficulty, Cough Up/Vomit Blood, Heart Beat Irreg/Pounding, Pain/Pressure in jaw, Vaginal Bleeding Increase, Cramps in feet or legs, Lightheadedness, Pain/Pressure in shoulder, Diarrhea(Persistent), Memory Changes Suddenly, Questions/Concerns, Weight gain consecutive days, Dizziness/Fainting, Nausea/Vomiting, Shortness of Breath, Weight gain over 2 pounds If questions or concerns contact your physician Or seek help at emergency department. BRANDON BARKER DO Jul 23, 2021 15:05
== END 2021-07-23 15:40 ==
LOC: SDC 11:56
PROVIDERS: ATTEND Surgery
DX: Z45.2 Encounter for adjustment and management of vascular access device (principal); I10 Essential (primary) hypertension; D12.6 Benign neoplasm of colon, unspecified; Z85.3 Personal history of malignant neoplasm of breast; Z79.899 Other long term (current) drug therapy; Z79.82 Long term (current) use of aspirin; Z90.10 Acquired absence of unspecified breast and nipple
CPT/HCPCS: 87081

== ENCOUNTER → 2022-06-09 | Outpatient (CLI) | payer MEDICARE, OTHER, MEDICAID ==
[~2022-06-09] VITALS: Ht 172.7 cm; Wt 104.5 kg
[~2022-06-09] MED LIST changes: +LIDOCAINE 1% INJ 50 ML (XYLOCAINE) VIAL IJ ONE; -TRIA1CAP4 PO; +TRIA1CAP84 PO
--- NOTE | 2022-06-09 15:52 | Diagnostic Imaging Report ---
INDICATION: Right thyroid nodule. Patient presents for thyroid biopsy for using ultrasound guidance. Patient brought to the procedure room and placed on the table in the supine position. Ultrasound imaging of the neck was performed to evaluate appropriate entry site. The neck was then prepped and draped in usual sterile fashion. Small amount of 1% lidocaine was utilized for local anesthesia. There is marked thyroid parenchymal heterogeneity. A subtle area of hypoechogenicity in the far posterior aspect of the right lobe of thyroid is noted, uncertain if this is a true nodule versus just heterogeneous thyroid parenchyma. Due to the deep nature of the lesion and the lesion being located next to the carotid artery and trachea, the procedure was technically challenging. The needle had to be placed in an extremely vertical position due to the location of the lesion, making needle visualization difficult. Several passes were made with a 25-gauge needle. Hemostasis was obtained. Patient tolerated procedure well. IMPRESSION: Technically challenging fine-needle aspiration of the area of ill-defined hypoechogenicity in the far posterior aspect of the right lobe of thyroid. Pathology results are pending. If results come back as nondiagnostic, a followup thyroid ultrasound would be recommended to show continued stability. Dictated by: Dictated on workstation # [id number]
== END ==
LOC: RAD 14:15
PROVIDERS: ATTEND Otolaryngology Otolaryngology/Facial Plastic Surgery
DX: E04.1 Nontoxic single thyroid nodule (principal)
CPT/HCPCS: 10005

== ENCOUNTER → 2023-08-30 | Outpatient (CLI) | payer MEDICARE, OTHER ==
[~2023-08-30] MED LIST changes: -LIDOCAINE 1% INJ 50 ML (XYLOCAINE) VIAL IJ ONE
--- NOTE | 2023-08-30 12:06 | Diagnostic Imaging Report ---
CERVICAL SPINE 3 VIEWS OR LESS INDICATION: Neck pain. COMPARISON: None available. TECHNIQUE: Three views of the cervical spine. FINDINGS: There is 3 mm of anterolisthesis of C4 on C5. No traumatic subluxation. Diffuse degenerative disc disease is most advanced at C5-C6 and C6-C7. No prevertebral soft tissue swelling. No acute fracture. Lateral masses of C1 and C2 are normal in alignment. IMPRESSION: 1. No acute osseous abnormality in the cervical spine. 2. Multilevel degenerative changes are most advanced in the lower cervical spine. Dictated by: Dictated on workstation # [id number]
== END ==
LOC: RAD 11:05
PROVIDERS: ATTEND Chiropractor
DX: M47.812 Spondylosis without myelopathy or radiculopathy, cervical region (principal)
CPT/HCPCS: 72040